=== PATIENT | female | born 1970 | race Caucasian/White ===

== ENCOUNTER 2020-11-09 13:05 | Outpatient (REF) | payer OTHER, SELFPAY | END 2020-11-09 13:06 | disposition home or self-care (01) | LOC: HO.LAB 13:05 | PROVIDERS: Visit Provider Nurse Practitioner Family | DX: R50.9 Fever, unspecified (principal); Z20.822 Contact with and (suspected) exposure to COVID-19 | CPT/HCPCS: 36415; U0003; U0005 ==

== ENCOUNTER 2020-11-21 14:00 | Outpatient (REF) | payer OTHER, SELFPAY | END 2020-11-21 14:01 | disposition home or self-care (01) | LOC: HO.LNP 14:00 | PROVIDERS: Visit Provider Hospitalist | DX: Z20.822 Contact with and (suspected) exposure to COVID-19 (principal); B34.9 Viral infection, unspecified | CPT/HCPCS: U0003; U0005 ==

== ENCOUNTER 2021-01-10 12:05 | Outpatient (REF) | payer OTHER, SELFPAY ==
[2021-01-10 14:18] LABS: MANUAL DIFF FLAG NO
[2021-01-10 14:29] LABS: Basophils Percent Auto 0.5 % (0-2); Eosinophils Absolute Auto 0.1 X10*3/uL (0.0-0.4); Eosinophils Percent Auto 1.4 % (0-4); Hematocrit 32.7 % (37-47); Hemoglobin 9.2 g/dl (12.0-16.0); Imm Gran Abs Auto 0.02 X10*3/uL (0.00-0.03); Imm Gran Pct Auto 0.3 % (0.0-0.4); Lymphocytes Absolute Auto 2.1 X10*3/uL (1.2-4.9); Lymphocytes Percent Auto 31.7 % (20-40); Mean Corpuscular HGB Conc 28.1 g/dl (31.0-35.0); Mean Corpuscular Hemoglobin 19.4 pg (27.0-33.0); Mean Platelet Volume 9.5 fL (9.4-12.3); Monocytes Absolute Auto 0.5 X10*3/uL (0.1-1.2); Monocytes Percent Auto 7.7 % (2-11); Neutrophils Absolute Auto 3.8 X10*3/uL (2.0-8.3); Neutrophils Percent Auto 58.4 % (45-73); Platelet Count 368 X10*3/uL (160-400); Red Blood Count 4.74 X10*6/uL (4.20-5.50); Red Cell Distribution Width 17.7 % (11.0-16.0); White Blood Count 6.5 X10*3/uL (4.8-10.8)
[2021-01-10 15:01] LABS: TSH reflex Free T4 1.88 uIU/mL (0.32-4.0)
[2021-01-10 15:03] LABS: Alanine Aminotransferase 11 U/L (0-31); Albumin Level 4.2 g/dL (3.5-5.0); Alkaline Phosphatase 71 U/L (39-117); Anion Gap 12 (12-20); Aspartate Amino Transferase 14 U/L (5-31); Bilirubin Direct 0.2 mg/dL (0.0-0.5); Bilirubin Total 0.3 mg/dL (0.0-1.0); Blood Urea Nitrogen 17 mg/dL (9-16); Calcium 8.8 mg/dL (8.4-10.2); Carbon Dioxide 22 mmol/L (22-29); Chloride 112 mmol/L (96-108); Cholesterol 129 mg/dL; Estimated Glomerular Filt Rate > 60; Glucose Fasting 87 mg/dL (60-99); HDL Cholesterol 57 mg/dL; LDL Cholesterol Calculated 57 mg/dl; Potassium 4.7 mmol/L (3.3-5.1); Sodium 141 mmol/L (135-145); Total Protein 7.3 g/dL (6.5-8.0); Triglycerides 79 mg/dL
== END 2021-01-10 12:06 | disposition home or self-care (01) ==
LOC: HO.HMGCLDS 12:05
PROVIDERS: PCP Internal Medicine; Visit Provider Internal Medicine
DX: Z00.01 Encounter for general adult medical examination with abnormal findings (principal); F11.20 Opioid dependence, uncomplicated; F33.2 Major depressive disorder, recurrent severe without psychotic features; F41.1 Generalized anxiety disorder; G44.89 Other headache syndrome; G47.9 Sleep disorder, unspecified; M62.838 Other muscle spasm; K21.9 Gastro-esophageal reflux disease without esophagitis; R20.2 Paresthesia of skin; I25.2 Old myocardial infarction; I25.10 Atherosclerotic heart disease of native coronary artery without angina pectoris; Z86.73 Personal history of transient ischemic attack (TIA), and cerebral infarction without residual deficits
CPT/HCPCS: 36415; 80048; 80061; 80076; 84443; 85025

== ENCOUNTER → 2021-02-09 11:46 | Outpatient (BNVA) | payer OTHER, SELFPAY | PROVIDERS: PCP Internal Medicine; Visit Provider Nurse Practitioner | DX: Z12.11 Encounter for screening for malignant neoplasm of colon (principal); D50.9 Iron deficiency anemia, unspecified; R20.2 Paresthesia of skin | CPT/HCPCS: 99202 ==

== ENCOUNTER 2021-02-13 16:45 | Outpatient (REF) | payer OTHER, SELFPAY | END 2021-02-13 16:46 | disposition home or self-care (01) | LOC: HO.LNP 16:45 | PROVIDERS: Visit Provider Hospitalist | DX: Z20.822 Contact with and (suspected) exposure to COVID-19 (principal); B34.9 Viral infection, unspecified | CPT/HCPCS: U0003; U0005 ==

== ENCOUNTER 2021-02-17 | Outpatient (REF) | payer OTHER, SELFPAY ==
[2021-02-24 11:38] LABS: FIT Int Ctl YES; FIT1 NEGATIVE (NEGATIVE); FIT2 NEGATIVE (NEGATIVE)
== END 2021-02-17 00:01 | disposition home or self-care (01) ==
LOC: HO.LNP
PROVIDERS: Visit Provider Nurse Practitioner
DX: Z12.11 Encounter for screening for malignant neoplasm of colon (principal); D50.9 Iron deficiency anemia, unspecified
CPT/HCPCS: 82274

== ENCOUNTER 2021-03-16 07:25 | Day surgery (SDC) | payer OTHER, SELFPAY ==
[2021-03-10 15:17] VITALS: BMI 37.8
--- NOTE | 2021-03-13 12:10 | P.CONAN_ITS ---
Documented by User: Zabrina Juan 03/14/21 15:44 HPI - Anesthesia Eval Consult details Narrative: 51yo F for Colonoscopy PMFSH Active Problems Active Problems: All Active Problems (Updated 03/10/21 @ 15:24 by Lara Love) Fever (Acute) Viral syndrome (Acute) Encounter for general adult medical examination with abnormal findings (Acute) Coronary artery disease (Acute) History of myocardial infarction (Acute) History of stroke (Acute) Paresthesia of arm (Acute) Paresthesia of right leg (Acute) Chronic GERD (Acute) Narcotic dependence (Acute) Depression, major, severe recurrence (Acute) Anxiety, generalized (Acute) Difficulty sleeping (Acute) Muscle spasm (Acute) Headache syndrome (Acute) Iron deficiency anemia (Acute) Microcytic hypochromic anemia (Acute) Colon cancer screening (Acute) Past Medical History Medical History (Updated 03/14/21 @ 15:43 by Zabrina Juan) Anemia Anxiety, generalized Asthma CAD (coronary artery disease) Chronic GERD CVA (cerebral vascular accident) Depression History of anxiety Myocardial infarction Narcotic dependence Paresthesia of arm Paresthesia of right leg Patulous eustachian tube, right ear Sleep apnea Family History Family History Father Lung cancer Surgical History Surgical History H/O bilateral breast reduction surgery Hx of colonoscopy Social History Social History Household Members: Children Alcohol intake: current Alcohol intake frequency: holidays/special occasions only Patient Tobacco Use Status: Former Tobacco user Substance Use Type Other:: narcotic dependence Are you DNR?: No Advance Directives: No Advance Directives Information Provided: Yes Recently lost weight without trying: No Nutrition Risks: No Nutritional Risk Current occupational status: disabled Meds Allergies Allergy/AdvReac Type Severity Reaction Status Date / Time latex Allergy Unknown unknown Verified 02/13/21 14:09 levofloxacin [From Levaquin] Allergy Unknown Unknown Verified 02/13/21 14:09 Sulfa (Sulfonamide Allergy Unknown Unknown Verified 02/13/21 14:09 Antibiotics) Home Medications Medication Instructions Recorded Confirmed Last Taken Type aspirin 81 mg tablet,delayed 81 mg PO DAILY 11/09/20 03/10/21 Unknown History release atorvastatin 80 mg tablet 80 mg PO DAILY 11/09/20 03/10/21 Unknown History buprenorphine HCl 750 mcg buccal 750 mcg BUCCAL Q12H 11/09/20 03/10/21 Unknown History film clonazepam 1 mg tablet 1 mg PO DAILY 11/09/20 03/10/21 Unknown History duloxetine 30 mg capsule,delayed 30 mg PO DAILY 11/09/20 03/10/21 Unknown History release duloxetine 60 mg capsule,delayed 60 mg PO DAILY 11/09/20 03/10/21 Unknown History release hydroxyzine HCl 10 mg tablet 10 mg PO BEDTIME 11/09/20 03/10/21 Unknown History loratadine 10 mg tablet 10 mg PO DAILY 11/09/20 03/10/21 Unknown History metoprolol succinate 25 mg 25 mg PO DAILY 11/09/20 03/10/21 Unknown History tablet,extended release 24 hr omeprazole 40 mg capsule,delayed 40 mg PO DAILY 11/09/20 03/10/21 Unknown History release tizanidine 4 mg capsule 4 mg PO BEDTIME 11/09/20 03/10/21 Unknown History topiramate 200 mg tablet 200 mg PO BEDTIME 11/09/20 03/10/21 Unknown History Exam Exam Date and Time: March 13, 2021 1210 Height,Weight and Vital Signs: Height 5 ft Weight 87.8 kg Pertinent Lab Results Pertinent Lab Results: Laboratory Tests 01/10/21 01/10/21 12:24 12:24 WBC 6.5 Hgb 9.2 L Hct 32.7 L Plt Count 368 Sodium 141 Potassium 4.7 Chloride 112 H Carbon Dioxide 22 BUN 17 H Creatinine 0.84 Narrative Narrative: Stress Echo 11/2019 No evidence of ishcemia by ECG or Echo. Normal stress echo at 95% of the MPHR. Assessment and Plan Assessment Anesthesia Assessment: Chart Reviewed Documented by User: Adin Sweet MD 03/16/21 08:28 COUNT INCLUDES THE [facility] Past Medical History Medical History (Updated 03/14/21 @ 15:43 by Zabrina Juan) Anemia Anxiety, generalized Asthma CAD (coronary artery disease) Chronic GERD CVA (cerebral vascular accident) Depression History of anxiety Myocardial infarction Narcotic dependence Paresthesia of arm Paresthesia of right leg Patulous eustachian tube, right ear Sleep apnea Family History Family History Father Lung cancer Surgical History Surgical History H/O bilateral breast reduction surgery Hx of colonoscopy Social History Social History Household Members: Children Alcohol intake: current Alcohol intake frequency: holidays/special occasions only Patient Tobacco Use Status: Former Tobacco user Substance Use Type Other:: narcotic dependence Are you DNR?: No Advance Directives: No Advance Directives Information Provided: Yes Recently lost weight without trying: No Nutrition Risks: No Nutritional Risk Current occupational status: disabled Meds Allergies Allergy/AdvReac Type Severity Reaction Status Date / Time latex Allergy Unknown unknown Verified 02/13/21 14:09 levofloxacin [From Levaquin] Allergy Unknown Unknown Verified 02/13/21 14:09 Sulfa (Sulfonamide Allergy Unknown Unknown Verified 02/13/21 14:09 Antibiotics) Home Medications Medication Instructions Recorded Confirmed Last Taken Type aspirin 81 mg tablet,delayed 81 mg PO DAILY 11/09/20 03/10/21 Unknown History release atorvastatin 80 mg tablet 80 mg PO DAILY 11/09/20 03/10/21 Unknown History buprenorphine HCl 750 mcg buccal 750 mcg BUCCAL Q12H 11/09/20 03/10/21 Unknown History film clonazepam 1 mg tablet 1 mg PO DAILY 11/09/20 03/10/21 Unknown History duloxetine 30 mg capsule,delayed 30 mg PO DAILY 11/09/20 03/10/21 Unknown History release duloxetine 60 mg capsule,delayed 60 mg PO DAILY 11/09/20 03/10/21 Unknown History release hydroxyzine HCl 10 mg tablet 10 mg PO BEDTIME 11/09/20 03/10/21 Unknown History loratadine 10 mg tablet 10 mg PO DAILY 11/09/20 03/10/21 Unknown History metoprolol succinate 25 mg 25 mg PO DAILY 11/09/20 03/10/21 Unknown History tablet,extended release 24 hr omeprazole 40 mg capsule,delayed 40 mg PO DAILY 11/09/20 03/10/21 Unknown History release tizanidine 4 mg capsule 4 mg PO BEDTIME 11/09/20 03/10/21 Unknown History topiramate 200 mg tablet 200 mg PO BEDTIME 11/09/20 03/10/21 Unknown History Exam Airway Mallampati Class: I TM Dist: >3cm Neck ROM: Full Loose/Missing/Broken Teeth: No Heart: aRRR Lungs: NL Assessment and Plan Assessment Anesthesia Assessment: Anesthesia Plan Discussed and Chart Reviewed Final Anesthetic Review NPO: Yes ASA Class: III Final Preanesthetic Review: No Changes in Pt Med Stat, Meds/Allgs Chart Reviewed, Consent Obtained/Reviewed and Anes Risks/Benef Reviewed Patient Risk: Intermediate Procedure Risk: Low Anesthetic Plan Anesthetic Plan: MAC: Disposition: Standard PACU
[2021-03-16 07:39] VITALS: BMI 36.7
[2021-03-16 07:49] VITALS: BP 143/99; PULSE 90; RESP 18; TEMP 36.9; O2SAT 96
[2021-03-16] MEDS: Lactated Ringers 1,000 ML 100 ML IVCONT (07:56)
--- NOTE | 2021-03-16 08:29 | P.HPSUR_ITS ---
Pre-Procedural Eval Section B Chief Complaint: Screening Details of Present Illness: anemia, possible melena as well, Fh of polyps Relevant Family History (Specify if Yes): Yes Relevant Social History: None Present Medications: see Short Stay Collaborative assessment Medical History: Significant History (Anemia Anxiety, generalized Asthma CAD (coronary artery disease) Chronic GERD CVA (cerebral vascular accident) Depression History of anxiety Myocardial infarction Narcotic dependence Paresthesia of arm Paresthesia of right leg Patulous eustachian tube, right ear Sleep apnea) History of Previous Operations: Relevant previous surgery/procedure and date(s) (H/O bilateral breast reduction surgery Hx of colonoscopy) Allergies: Allergies Allergy/AdvReac Type Severity Reaction Status Date / Time latex Allergy Unknown unknown Verified 02/13/21 14:09 levofloxacin [From Levaquin] Allergy Unknown Unknown Verified 02/13/21 14:09 Sulfa (Sulfonamide Allergy Unknown Unknown Verified 02/13/21 14:09 Antibiotics) Review of Systems Sugical H&P ROS: Negative: Constitution, Cardiovascular, Respiratory, Neurological, Psychiatric, Hem-Onc, Allergic/Immunologic, Gastrointestinal, Genitourinary, Musculoskeletal, Integumentary, Endocrine and Eyes/Ears/Nose/ Throat Exam Surgical H&P Exam: Normal: HEENT, Normal: Heart, Normal: Lungs, Normal: Extremities, Normal: Abdomen, Normal: Skin and Normal: Neurological Plan Diagnosis/Plan: Unchanged I have reviewed the history and physical and performed a pertinent physical examination on my patient. No changes have occurred unless specified. EGD added to colonoscopy for anemia work up.
--- NOTE | 2021-03-16 08:31 | P.BOP_ITS ---
Brief Operative Note Date of Service: 03/16/21 Pre-op diagnosis: anemia Post-op diagnosis: same Procedure: see op note Surgeon: Booker Pierre MD Anesthesia: MAC Was an Networking Technology Instructor used for this Procedure?: No Estimated blood loss (mL): 0 Condition: stable Disposition: PACU
--- NOTE | 2021-03-16 08:43 | W.PM.OPN ---
Operative Note Operative Note Date of Service: 03/16/21 Narrative: Operative Information Procedure Description: EGD, Colonoscopy FLEXIBLE TRANSORAL UPPER GASTROINTESTINAL ENDOSCOPY AND COLONOSCOPY PROCEDURE NOTE UPPER ENDOSCOPY Consent: Indications for the procedure and potential complications of bleeding, perforation, reaction to medications and missed diagnosis were discussed with the patient and informed consent was obtained. Instrument: Olympus GIF H 190 J mid size upper endoscope Monitoring: Vital signs and clinical assessment, continuous EKG monitoring, Pulse oximetry, Carbon Dioxide monitoring and blood pressure monitoring were done throughout the procedure. Procedure: The patient was placed in the left lateral decubitis position and pre-procedure medications were administered and a bite block was placed. The endoscope was inserted into the mouth and advanced under direct vision to the third part of duodenum. A careful inspection was made as the upper endoscope was withdrawn including a retroflexed examination of the proximal stomach; Findings and interventions are described below. Findings: Larynx:normal Esophagus: GE junction at 35 cm, diaphragm hiatus at 33 cm, 2 cm sliding hiatal hernia noted with non obstructive schatzki ring Stomach: Mild gastritis with single erosion noted at pylorus. Biopsies were obtained. Grade 2 flap valve on retroflexed examination of the cardia. Duodenum: Normal bulb and descending duodenum, bx taken Intervention: Biopsies as noted above COLONOSCOPY Instrument: Olympus variable stiffness pediatric scope 190L Colonoscopy Monitoring: Vital signs and clinical assessment, continuous EKG monitoring, Pulse oximetry, Carbon Dioxide monitoring and blood pressure monitoring were done throughout the procedure. Colon withdrawal time was 8 minutes. Procedure: The patient was placed in the left lateral decubitis position and pre-procedure medications were administered. After a digital rectal examination of the ano-rectum, the video colonoscope was inserted into the rectum and advanced through the colon to the cecum/TI. The colonoscope was slowly withdrawn in a retrograde panoramic fashion and the colon mucosa was carefully examined including a retroflexed view of the rectum. Findings and interventions are described below. Procedure Difficulty:easy Findings: Terminal Ileum-normal Cecum:normal Ascending Colon: normal Transverse Colon -normal Descending Colon:normal Sigmoid Colon: normal Rectum: Retroflexion with moderate sized internal hemorrhoids, grade I Anorectum - normal Colon preparation: [facility] Bowel Preparation Scale Right colon; 2 Transverse colon: 2 Left colon; 2 (0 = Unprepared colon segment with mucosa not seen due to solid stool that cannot be cleared. 1 = Portion of mucosa of the colon segment seen, but other areas of the colon segment not well seen due to staining, residual stool and/or opaque liquid. 2 = Minor amount of residual staining, small fragments of stool and/or opaque liquid, but mucosa of colon segment seen well. 3 = Entire mucosa of colon segment seen well with no residual staining, small fragments of stool or opaque liquid) Impression and Post Procedure Diagnosis: Endoscopy Findings: erosive gastritis schatzki ring hiatal hernia Colonoscopy Findings: internal hemorrhoids Plan: Await Pathology results Repeat Colonoscopy in 5 years due to Fh of polyps or earlier if clinically indicated High fiber diet leaflet avoid straining at stool, epsom salts and sitz bath, anusol supps or cream as needed if bx neg then capsule endoscopy to complete anemia work uop Above findings were reviewed with the patient and relevant handouts were provided if indicated.
[2021-03-16 09:01] VITALS: BP 142/87; PULSE 67; RESP 16; TEMP 36.3; O2SAT 100
[2021-03-16 09:06] VITALS: BP 137/88; PULSE 68; RESP 16; O2SAT 100
[2021-03-16 09:11] VITALS: BP 154/89; PULSE 65; RESP 16; TEMP 36.4; O2SAT 100
== END 2021-03-16 09:56 | disposition home or self-care (01) ==
PROVIDERS: PCP Internal Medicine; Visit Provider Internal Medicine Gastroenterology
PROC: 0DJD8ZZ Inspection of Lower Intestinal Tract, Via Natural or Artificial Opening Endoscopic (ICD-10-PCS; CPT 45378; principal; 2021-03-16 08:30)
DX: Z12.11 Encounter for screening for malignant neoplasm of colon (principal); Z83.71 Family history of colonic polyps; K64.0 First degree hemorrhoids; D64.9 Anemia, unspecified; K21.9 Gastro-esophageal reflux disease without esophagitis; K29.60 Other gastritis without bleeding; K22.2 Esophageal obstruction; K44.9 Diaphragmatic hernia without obstruction or gangrene; I69.351 Hemiplegia and hemiparesis following cerebral infarction affecting right dominant side; I69.323 Fluency disorder following cerebral infarction; J45.909 Unspecified asthma, uncomplicated; I25.10 Atherosclerotic heart disease of native coronary artery without angina pectoris; I25.2 Old myocardial infarction; F32.9 Major depressive disorder, single episode, unspecified; G47.00 Insomnia, unspecified; F11.20 Opioid dependence, uncomplicated; Z87.891 Personal history of nicotine dependence; Z91.040 Latex allergy status; Z88.1 Allergy status to other antibiotic agents; Z88.2 Allergy status to sulfonamides; Z79.82 Long term (current) use of aspirin; Z79.899 Other long term (current) drug therapy
CPT/HCPCS: 43239; G0105; 88305; 88342

== ENCOUNTER → 2021-03-30 08:26 | Outpatient (BNVA) | payer OTHER, SELFPAY | PROVIDERS: PCP Internal Medicine; Visit Provider Nurse Practitioner | DX: Z12.11 Encounter for screening for malignant neoplasm of colon (principal); K21.9 Gastro-esophageal reflux disease without esophagitis; Z83.71 Family history of colonic polyps | CPT/HCPCS: Q3014 ==

== ENCOUNTER 2021-06-01 10:50 | Outpatient (REF) | payer OTHER, SELFPAY | END 2021-06-01 10:51 | disposition home or self-care (01) | LOC: HO.LAB 10:50 | PROVIDERS: PCP Internal Medicine; Visit Provider Family Medicine Adult Medicine | DX: G89.4 Chronic pain syndrome (principal); M54.17 Radiculopathy, lumbosacral region; Z79.899 Other long term (current) drug therapy | CPT/HCPCS: Q3014 ==

== ENCOUNTER 2021-12-09 11:07 | Outpatient (REF) | payer OTHER, SELFPAY ==
[2021-12-09 13:34] LABS: MANUAL DIFF FLAG NO
[2021-12-09 13:39] LABS: Basophils Percent Auto 0.7 % (0-2); Eosinophils Absolute Auto 0.1 X10*3/uL (0.0-0.4); Eosinophils Percent Auto 2.3 % (0-4); Hematocrit 41.4 % (37.0-47.0); Hemoglobin 13.5 g/dl (12.0-16.0); Imm Gran Abs Auto 0.02 X10*3/uL (0.00-0.03); Imm Gran Pct Auto 0.3 % (0.0-0.4); Lymphocytes Percent Auto 33.4 % (20-40); Mean Corpuscular HGB Conc 32.6 g/dl (31.0-35.0); Mean Corpuscular Hemoglobin 27.8 pg (27.0-33.0); Mean Corpuscular Volume 85.2 fL (80.0-98.0); Mean Platelet Volume 9.7 fL (9.4-12.3); Monocytes Absolute Auto 0.5 X10*3/uL (0.1-1.2); Monocytes Percent Auto 8.2 % (2-11); Neutrophils Absolute Auto 3.3 x10*3/uL (2.0-8.3); Neutrophils Percent Auto 55.1 % (45-73); Platelet Count 296 X10*3/uL (160-400); Red Blood Count 4.86 X10*6/uL (4.20-5.50); Red Cell Distribution Width 13.4 % (11.0-16.0)
[2021-12-09 13:48] LABS: Estimated Average Glucose 100 mg/dL; Hemoglobin A1c % 5.1 %
[2021-12-09 13:54] LABS: Alanine Aminotransferase 14 U/L (0-31); Albumin Level 3.8 g/dL (3.5-5.0); Alkaline Phosphatase 98 U/L (39-117); Anion Gap 12 (12-20); Aspartate Amino Transferase 18 U/L (5-31); Bilirubin Total 0.4 mg/dL (0.0-1.0); Blood Urea Nitrogen 12 mg/dL (9-16); Calcium 9.1 mg/dL (8.4-10.2); Carbon Dioxide 23 mmol/L (22-29); Chloride 111 mmol/L (96-108); Estimated Glomerular Filt Rate > 60; Glucose Random 90 mg/dL (60-115); Potassium 4.5 mmol/L (3.3-5.1); Sodium 141 mmol/L (135-145)
[2021-12-09 14:14] LABS: Ferritin 23 ng/mL (10-250); TSH reflex Free T4 2.77 uIU/mL (0.32-4.0)
[2021-12-10 09:17] LABS: LDL Cholesterol Direct 45 mg/dL (<100)
== END 2021-12-09 11:08 | disposition home or self-care (01) ==
LOC: HO.HMGCLDS 11:07
PROVIDERS: Absent Provider Internal Medicine Medical Oncology; PCP Internal Medicine; Visit Provider Internal Medicine
DX: Z00.01 Encounter for general adult medical examination with abnormal findings (principal); I10 Essential (primary) hypertension; E66.09 Other obesity due to excess calories
CPT/HCPCS: 36415; 80053; 82728; 83036; 83721; 84443; 85025

== ENCOUNTER → 2022-05-17 10:07 | Outpatient (BNVA) | payer OTHER, SELFPAY | PROVIDERS: PCP Internal Medicine; Visit Provider Nurse Practitioner | DX: K59.04 Chronic idiopathic constipation (principal); K21.9 Gastro-esophageal reflux disease without esophagitis; Z83.71 Family history of colonic polyps | CPT/HCPCS: 99212 ==

== ENCOUNTER 2022-06-08 14:20 | Outpatient (REF) | payer OTHER, SELFPAY ==
--- NOTE | ~2022-06-08 | XR_ITS ---
EXAMINATION: XR FOOT, RIGHT CLINICAL INFORMATION: Pain in the right foot. COMPARISON: None TECHNIQUE: AP, lateral, and oblique views of the right foot. FINDINGS: There is a hallux valgus deformity of the great toe. Joint spaces are maintained. No acute fracture. Small corticated osseous density at the tip of medial malleolus is chronic. This small bone density has corticated margins. No dislocation. Small plantar calcaneal spur. No soft tissue abnormality. XR/XR foot RT min 3V IMPRESSION: Hallux valgus deformity of the great toe. Small plantar calcaneal spur. No acute abnormality.
== END 2022-06-08 14:21 | disposition home or self-care (01) ==
LOC: HO.HMGCX 14:20
PROVIDERS: PCP Internal Medicine
DX: M79.672 Pain in left foot (principal)
CPT/HCPCS: 73630

== ENCOUNTER → 2022-06-14 11:31 | Outpatient (BNVA) | payer OTHER, SELFPAY | PROVIDERS: PCP Internal Medicine; Visit Provider Nurse Practitioner | DX: K21.9 Gastro-esophageal reflux disease without esophagitis (principal); K59.04 Chronic idiopathic constipation | CPT/HCPCS: 99212 ==

== ENCOUNTER → 2022-07-06 08:24 | Outpatient (BNVA) | payer OTHER, SELFPAY | PROVIDERS: PCP Internal Medicine; Referring Provider Internal Medicine; Visit Provider Nurse Practitioner | DX: K21.9 Gastro-esophageal reflux disease without esophagitis (principal); R68.81 Early satiety; R11.0 Nausea; K59.04 Chronic idiopathic constipation | CPT/HCPCS: 99212 ==

== ENCOUNTER → 2022-11-13 08:06 | Outpatient (REF) | payer OTHER, SELFPAY ==
--- NOTE | ~2022-11-13 | NM_ITS ---
EXAMINATION: RADIONUCLIDE SOLID FOOD GASTRIC EMPTYING 4-HOUR STUDY CLINICAL INFORMATION: Early satiety. COMPARISON: No previous gastric emptying study is available for comparison. TECHNIQUE: A standard meal consisting of 4 oz of Egg Beaters brand equivalent tagged with 860 microcuries Tc-99m Sulfur Colloid, 8 oz water and 2 slices of toast with jelly was administered orally to the patient. Images were obtained using a dual head gamma camera in the anterior and posterior projections over of the stomach immediately post ingestion and at hourly intervals up to 4 hours post ingestion. The anterior and posterior counts at each time interval were averaged using the geometric mean and expressed as percentage of the immediate post ingestion counts. FINDINGS: There is good visualization of activity in the stomach immediately post ingestion. As the study progresses, there progressively increasing visualization of small bowel activity. However, at the end of the study there is mild abnormal retention of activity in the stomach at 4 hours. Retention in the stomach at each time interval was: 1 hour 58% (normal 37%-90%) 2 hours 43% (normal 30%-60%) 3 hours 26% 4 hours 20% (normal 0%-10%) NM/NM gastric emptying study IMPRESSION: Abnormal study. There is mild retention of solid food in the stomach at 4 hours.
== END ==
LOC: HO.NUCMED 08:06
PROVIDERS: PCP Internal Medicine; Visit Provider Nurse Practitioner
DX: R68.81 Early satiety (principal); R11.0 Nausea
CPT/HCPCS: 78264; A9541

== ENCOUNTER → 2022-12-10 09:28 | Outpatient (BNVA) | payer OTHER, SELFPAY | PROVIDERS: PCP Internal Medicine; Visit Provider Internal Medicine | DX: M54.16 Radiculopathy, lumbar region (principal); M48.062 Spinal stenosis, lumbar region with neurogenic claudication; Z79.899 Other long term (current) drug therapy | CPT/HCPCS: 99212 ==

== ENCOUNTER 2022-12-24 10:59 | Outpatient (REF) | payer OTHER, SELFPAY ==
--- NOTE | ~2022-12-24 | MM_ITS ---
EXAMINATION: MM SCREENING DIGITAL BREAST TOMOSYNTHESIS, BILATERAL CLINICAL INFORMATION: Screening. Asymptomatic. The lifetime risk of breast cancer based on the Tyrer-Cuzick Model is 9%. COMPARISON: Outside mammography 08/08/2021, 02/11/2020, 08/07/2018 ([facility] TECHNIQUE: Digital breast tomosynthesis is performed in both the craniocaudal and mediolateral oblique views along with computer-aided detection (CAD). Synthesized 2D images are generated from the tomosynthesis. FINDINGS: The breasts are heterogeneously dense, which may obscure small masses (ACR BI-RADS breast composition Category c). Parenchymal pattern is similar to prior outside exams. There are scattered stable bilateral nodular parenchymal asymmetries and probable fibrocystic changes. No developing density or architectural abnormality or significant mass. No abnormal calcifications. The axilla and skin contours are unremarkable. No significant changes. MM/MM tomosynthesis screening BI IMPRESSION: No mammographic evidence of malignancy. ASSESSMENT: BI-RADS 2: Benign RECOMMENDATION: Routine annual mammography screening. This patient's information was entered into a reminder system with a target due date for their next mammogram.
== END 2022-12-24 11:00 | disposition home or self-care (01) ==
LOC: HO.MAMMO 10:59
PROVIDERS: PCP Internal Medicine; Visit Provider Internal Medicine
DX: Z12.31 Encounter for screening mammogram for malignant neoplasm of breast (principal)
CPT/HCPCS: 77063; 77067

== ENCOUNTER → 2023-01-02 09:44 | Outpatient (BNVA) | payer OTHER, SELFPAY | PROVIDERS: PCP Internal Medicine; Visit Provider Nurse Practitioner | DX: K30 Functional dyspepsia (principal); K59.04 Chronic idiopathic constipation; K21.9 Gastro-esophageal reflux disease without esophagitis | CPT/HCPCS: 99212 ==

== ENCOUNTER 2023-04-29 09:51 | Outpatient (AMB) | payer OTHER, SELFPAY ==
--- NOTE | 2023-04-29 09:54 | MHC.OFFVIS ---
Intake Vital Signs 04/29/23 09:55 Height 4 ft 9 in Weight 218 lb BMI 47.2 BP 160/94 H Blood Pressure Location Lt radial Position Sitting Respiration 14 Pulse 70 Pulse Source Pulse Oximeter Pulse Oximetry (%) 99 Oxygen Delivery Method Room Air Intake Visit Reasons: CHRONIC PAIN Allergies latex Allergy (Unknown, Verified 04/29/23 10:00) unknown levofloxacin [From Levaquin] Allergy (Unknown, Verified 04/29/23 10:00) Unknown Sulfa (Sulfonamide Antibiotics) Allergy (Unknown, Verified 04/29/23 10:00) Unknown Medication List - Last Reconciled 04/29/23 by Annmarie Escobar LPN aspirin (Adult Aspirin Regimen) 81 mg PO DAILY atorvastatin 80 mg PO DAILY buprenorphine HCl (Belbuca) 750 mcg buccal Q12H buspirone 30 mg PO TID clonazepam 1 mg PO DAILY duloxetine 60 mg PO DAILY duloxetine 20 mg PO DAILY famotidine (Pepcid) 40 mg PO BEDTIME ferrous sulfate (FeroSul) 325 mg PO BID ketoconazole 2% topical melatonin 5 mg PO BEDTIME metoclopramide HCl (Reglan) 5 mg PO .tidac metoprolol succinate ER 25 mg PO DAILY mometasone 0.1% mL topical naproxen sodium 275 mg PO BID PRN pantoprazole (Protonix) 40 mg PO DAILY 30 days plecanatide (Trulance) 3 mg PO DAILY prazosin 2 mg PO BEDTIME prazosin 1 mg PO BEDTIME tizanidine 4 mg PO BEDTIME topiramate 200 mg PO BID HPI CHRONIC PAIN HPI Details 53-year-old female presenting today for a follow-up of chronic back and leg pain. Her current primary care physician is Dr. Mendes. She is currently on Belbuca 750 mg B.I.D. She is following up with her provider in [place], [place], for her prescription. She has to drive every month to [place] for her prescriptions. She has a fear of needles and is hesitant to undergo injections. She is interested in finding a primary care physician in the vicinity who can provide the Belbuca prescription for her. The patient reports back pain after walking about a block. [facility] Medical History (Updated 04/29/23 @ 10:46 by Adin Sweet MD) Anemia Anxiety, generalized Asthma CAD (coronary artery disease) Chronic GERD CVA (cerebral vascular accident) Depression Encounter for general adult medical examination with abnormal findings History of anxiety Myocardial infarction Narcotic dependence Paresthesia of arm Paresthesia of right leg Patulous eustachian tube, right ear Right lumbosacral radiculopathy Sleep apnea Surgical History H/O bilateral breast reduction surgery H/O esophagogastroduodenoscopy Hx of colonoscopy Family History Father Lung cancer Social History Household Members: Children Housing: House Alcohol intake: current Alcohol intake frequency: holidays/special occasions only Patient Tobacco Use Status: Former Tobacco user e-Cigarette/Vaping Use: Never Used Current occupational status: disabled Cognitive needs: No Hearing needs: No Vision needs: No Review of Systems Const All systems reviewed & are unremarkable except as noted in HPI and below Physical Exam Vital Signs: Last Vital Signs Pulse 70 04/29/23 09:55 Resp 14 04/29/23 09:55 BP 160/94 H 04/29/23 09:55 Pulse Ox 99 04/29/23 09:55 Oxygen Delivery Method Room Air 04/29/23 09:55 BMI result Body Mass Index 47.2 General: Appears afebrile. Alert and oriented. Mood and affect appropriate. Follows and participates in conversation appropriately. Respiratory effort is unlabored. Able to transition from sit to stand unassisted. Ambulates with bilaterally normal heel strike and toe off. Spine Facet loading is positive on both sides. Results Reviewed Results Reviewed: Reviewed MRI of the lumbar spine done in 2021. Mild thoracolumbar scoliosis. Multilevel lower lumbar facet arthritis with significant arthropathy and hypertrophy. Significant multifidus atrophy. Moderate ligamentum flavum hypertrophy. No significant central or foraminal stenosis. Assessment & Plan Assessment & Plan (1) Degenerative joint disease of low back: Code(s): M47.9 - Spondylosis, unspecified Plan 1. Discussed diagnostic facet joint interventions as potential treatment option to help relieve some of her lumbar spondylosis related symptoms. While she has some symptoms that appear to be neurogenic claudication, her imaging is quite reassuring from a spinal stenosis standpoint. The patient will let us know whenever she wants to proceed with either of the treatment options in the future. 2. As discussed on the last visit, I again informed her that we're no longer accepting patients into our narcotics program. However, I feel that it would be appropriate for her to continue her Belbuca 750 mcg b.i.d. regimen under the care of a primary care provider. She has been stable on this medication without any side effects or issues with compliance. She states that she is happy to provide records from her current prescriber showing her compliance and lack of adverse effects, but I do not have these for review today. I informed her that her primary care provider may require to review those records prior to taking over the prescription. Patient expressed understanding. Scribed for Dr. Sweet by Justino Bashir, clinical laboratory medical director, on 04/29/2023. I, Dr. Sweet, have personally reviewed and agree with the information entered by the scribe. Coding Level of Care Code Est Pt Level 4 (45827) Diagnoses Degenerative joint disease of low back M47.9
[2023-04-29 09:55] VITALS: BP 160/94; PULSE 70; RESP 14; O2SAT 99; BMI 47.2
== END 2023-04-29 10:22 | disposition home or self-care (01) ==
PROVIDERS: PCP Internal Medicine; Visit Provider Internal Medicine
DX: M47.9 Spondylosis, unspecified (principal)
CPT/HCPCS: 99214

== ENCOUNTER → 2023-04-29 09:51 | Outpatient (BNVA) | payer OTHER, SELFPAY | PROVIDERS: PCP Internal Medicine; Visit Provider Internal Medicine | DX: M47.9 Spondylosis, unspecified (principal) | CPT/HCPCS: 99212 ==

== ENCOUNTER 2023-07-04 08:17 | Outpatient (AMB) | payer OTHER, SELFPAY ==
--- NOTE | 2023-07-04 08:20 | MHC.OFFVIS ---
Intake Vital Signs 07/04/23 08:38 Height 4 ft 9 in Weight 219 lb 2.232 oz BMI 47.4 BP 184/93 H Blood Pressure Location Lt brachial Position Sitting Pulse 53 Intake Visit Reasons: 6 mnth f/u paresis, GERD, CIC Intake Note: Patient presents to in office visit today in 6 months follow up paresis, GERD. CC: Patient reports she is doing well and denies having any new GI issues today. Accompanied by: Self / Same As Patient Allergies latex Allergy (Unknown, Verified 07/04/23 08:42) unknown levofloxacin [From Levaquin] Allergy (Unknown, Verified 07/04/23 08:42) Unknown Sulfa (Sulfonamide Antibiotics) Allergy (Unknown, Verified 07/04/23 08:42) Unknown HPI 6 mnth f/u paresis, GERD, CIC HPI Details Assessment & Plan (1) Delayed gastric emptying: Comment: 2022 GES delay Code(s): K30 - Functional dyspepsia Plan: REGLAN 5 MG 3 TIMES A DAY WITH SENT 11/26 She is doing well with the reglan w/o any s/e. This has resolved her N/V and her severe GERD. She continues on the famotidine qhs and pantoprazole qam. She also continues on evelin Trulance with good CIC control. She is requesting referral to wt [facility]. but this does not need a referral. She is dieting to lost wt and her clothes are looser, so she question the accuracy of our scale. ROV 6 mos. (2) Chronic idiopathic constipation: Code(s): K59.04 - Chronic idiopathic constipation (3) Chronic GERD: Code(s): K21.9 - Gastro-esophageal reflux disease without esophagitis Medications: New famotidine (Pepcid ) 40 mg PO BEDTIME 30 tabs 6RF Refilled metoclopramide HCl (Reglan) 5 mg PO .tidac 90 tabs 6RF K31.84 - Gastropar esis pantoprazole (Prot wilson) 40 mg PO DAILY 30 days 30 tabs 6RF K21.9 - Gastro-eso phageal reflux dis ease without esoph agitis plecanatide (Trula nce) 3 mg PO DAILY 30 tabs 6RF K59.04 - Chronic i diopathic constipa tion TODAY'S VISIT She continues to do well on her medications. She is doing well with the reglan w/o any s/e. This has resolved her N/V and her severe GERD. She continues on the famotidine qhs and pantoprazole qam. She also continues on the Trulance with good CIC control. She is working at the [employer] and is very tired! 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 ROV 6 mos. [facility] Medical History Right lumbosacral radiculopathy Sleep apnea Asthma History of anxiety Anemia Depression CVA (cerebral vascular accident) Myocardial infarction CAD (coronary artery disease) Patulous eustachian tube, right ear Anxiety, generalized Narcotic dependence Chronic GERD Paresthesia of right leg Paresthesia of arm Encounter for general adult medical examination with abnormal findings Surgical History H/O esophagogastroduodenoscopy Hx of colonoscopy H/O bilateral breast reduction surgery Family History Father Lung cancer Social History Household Members: Children Housing: House Alcohol intake: current Alcohol intake frequency: holidays/special occasions only Patient Tobacco Use Status: Former Tobacco user e-Cigarette/Vaping Use: Never Used Current occupational status: disabled Cognitive needs: No Hearing needs: No Vision needs: No Review of Systems Const Reports fatigue, Denies fever(s), Denies night sweats, Denies poor appetite and Denies weight loss ENT Reports Normal hearing present, Denies dental pain, Denies dysphagia, Denies hearing loss, Denies mouth pain, Denies odynophagia, Denies throat swelling, Denies tongue swelling and Reports other (Dentition adequate) Card Reports no additional complaints Resp Reports no additional complaints GI Denies abdominal pain, Denies melena, Denies bloating, Denies hematochezia, Reports constipation, Denies GI cramping, Denies dysphagia, Denies excessive flatus, Denies early satiety, Reports heartburn, Denies diarrhea, Denies nausea, Denies odynophagia, Denies vomiting and Denies hematemesis Skin/Breast Denies pruritus, Denies lesions, Denies rash and Denies jaundice Neuro Reports Normal hearing present and Denies Abnormal speech present Endo Reports fatigue Aller/Immun Denies throat swelling and Denies tongue swelling Physical Exam Vital Signs: Last Vital Signs Pulse 53 07/04/23 08:38 BP 184/93 H 07/04/23 08:38 BMI result Body Mass Index 47.4 Const General: cooperative, no acute distress, well developed and well groomed Nutritional Appearance: well nourished and obese morbidly obese Orientation/consciousness: oriented to person, oriented to place and oriented to time Limitations: No language barrier HEENT Head: Yes normocephalic and Yes atraumatic Eyes General: appearance normal, both eyes and all related structures Pupils: Equal, round and reactive pupils present Neck Neck: Yes normal visual inspection and Yes no lymphadenopathy Thyroid: Thyroid normal Resp Effort & Inspection: normal respiratory effort and able to speak in complete sentences Auscultation: clear to auscultation bilaterally Cardio Rate: regular rate Rhythm: regular rhythm Heart sounds: Normal, physiologic split S2 sound present Peripheral pulses: radial pulses present and posterior tibial pulses present GI Inspection: No distended, Yes Abdominal panniculus present and Yes obesity Palpation (GI): Soft to palpation, nontender, no guarding, not rigid and No hepatosplenomegaly present Percussion: Yes normal to percussion Auscultation: normal bowel sounds Rectal Exam - Female: deferred Skin General skin exam: no rashes or lesions noted, turgor normal, skin not dry, no jaundice, No spider nevi and no striae Rashes: no rashes Nails: normal Neuro General: oriented to person, oriented to place and oriented to time Cranial nerves: Yes Equal, round and reactive pupils present and Yes Normal hearing present Speech: No Abnormal speech present Extrem General: Yes normal to inspection, No clubbing, No cyanosis and No edema Psych Appearance: grossly normal and well kempt Mental Status: mental status grossly normal Speech and movement: Normal speech and movement present Affect: normal affect Attitude: cooperative Thought process: Normal thought process present and not confabulating Thought content: Normal thought content present Insight: Fair insight present (Psych) Judgement: Fair judgement present (Psych) Assessment & Plan Assessment & Plan (1) Delayed gastric emptying: Comment: 2022 GES delay Code(s): K30 - Functional dyspepsia Plan: She continues to do well on her medications. She is doing well with the reglan w/o any s/e. This has resolved her N/V and her severe GERD. She continues on the famotidine qhs and pantoprazole qam. She also continues on the Trulance with good CIC control. She is working at the [employer] and is very tired! 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 ROV 6 mos. (2) Chronic idiopathic constipation: Code(s): K59.04 - Chronic idiopathic constipation (3) Chronic GERD: Code(s): K21.9 - Gastro-esophageal reflux disease without esophagitis Medications: Refilled famotidine (Pepcid) 40 mg PO BEDTIME 30 tabs 6RF metoclopramide HCl (Reglan) 5 mg PO .tidac 90 tabs 6RF K31.84 - Gastroparesis plecanatide (Trulance) 3 mg PO DAILY 30 tabs 6RF K59.04 - Chronic idiopathic constipation pantoprazole 40 mg PO DAILY 90 tabs 2RF K21.9 - Gastro-esophageal reflux disease without esophagitis Coding Level of Care Code Est Pt Level 3 (67434) Diagnoses Delayed gastric emptying K30 Chronic idiopathic constipation K59.04 Chronic GERD K21.9
[2023-07-04 08:38] VITALS: BP 184/93; PULSE 53; BMI 47.4
== END 2023-07-04 08:57 | disposition home or self-care (01) ==
PROVIDERS: Visit Provider Nurse Practitioner
DX: K30 Functional dyspepsia (principal); K59.04 Chronic idiopathic constipation; K21.9 Gastro-esophageal reflux disease without esophagitis
CPT/HCPCS: 99213

== ENCOUNTER → 2023-07-04 08:17 | Outpatient (BNVA) | payer OTHER, SELFPAY | PROVIDERS: Visit Provider Nurse Practitioner | DX: K30 Functional dyspepsia (principal); K59.04 Chronic idiopathic constipation; K21.9 Gastro-esophageal reflux disease without esophagitis; Z79.899 Other long term (current) drug therapy | CPT/HCPCS: 99212 ==

== ENCOUNTER 2024-01-02 07:49 | Outpatient (AMB) | payer OTHER, SELFPAY ==
--- NOTE | 2024-01-02 07:58 | MHC.OFFVIS ---
Intake Vital Signs 01/02/24 08:02 Height 4 ft 11 in Weight 213 lb BMI 43.0 BP 137/71 Blood Pressure Location Lt brachial Position Sitting Pulse 63 Intake Visit Reasons: 6 month follow up Intake Note: Patient follow up for Chronic GERD. Patient denies any GI issues.. Medical Legal Investigator Required: No Accompanied by: Self / Same As Patient Allergies latex Allergy (Unknown, Verified 01/02/24 07:57) unknown levofloxacin [From Levaquin] Allergy (Unknown, Verified 01/02/24 07:57) Unknown Sulfa (Sulfonamide Antibiotics) Allergy (Unknown, Verified 01/02/24 07:57) Unknown HPI 6 month follow up HPI Details Assessment & Plan (1) Delayed gastric emptying: Comment: 2022 GES delay Code(s): K30 - Functional dyspepsia Plan: She continues to do well on her medications. She is doing well with the reglan w/o any s/e. This has resolved her N/V and her severe GERD. She continues on the famotidine qhs and pantoprazole qam. She also continues on the Trulance with good CIC control. She is working at the [employer] and is very tired! 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 ROV 6 mos. (2) Chronic idiopathic constipation: Code(s): K59.04 - Chronic idiopathic constipation (3) Chronic GERD: Code(s): K21.9 - Gastro-esophageal reflux disease without esophagitis Medications: Refilled famotidine (Pepcid ) 40 mg PO BEDTIME 30 tabs 6RF metoclopramide HCl (Reglan) 5 mg PO .tidac 90 tabs 6RF K31.84 - Gastropar esis plecanatide (Trula nce) 3 mg PO DAILY 30 tabs 6RF K59.04 - Chronic i diopathic constipa tion pantoprazole 40 mg PO DAILY 90 tabs 2RF K21.9 - Gastro-eso phageal reflux dis ease without esoph agitis CORRESPONDENCE On 11/21/22 @ 16:40 Fara Gaviria Wrote To Tono,January I rescheduled this patient and she states that she just has been waiting for her results - she is having severe GERD and she states that she had an allergic reaction..she said Sulfur but I am not sure if she meant Sulfa which is listed in her chart. She said she had a bad two days after the GES? TODAY'S VISIT REGLAN 5 MG 3 TIMES A DAY WITH SENT 11/26 The reglan is working well! She has had absolutely no side effects, and this has resolved her sulfa burping and her nausea. This is allowing her to eat better as well. She is very satisfied now with her GI regimen and the control of her heartburn. She also continues on her Trulance with good control of her constipation along with her pantoprazole and famotidine. She is taking 5 mg of Reglan 3 times a day and only had 1 incident of overnight acid brash what she thinks this because she ate too late. We discussed a possible for this depending on how she progresses especially with other medications. She had another stroke with facial droop and slurred speech in September but did not go tot [facility]. She tells me that her doctor will be putting her on Wegovy soon and I did let her know that this could slow down her GI system even more and we may need to readjust the medications. Return office visit in 3 months [facility] Medical History (Updated 01/02/24 @ 08:09 by CHUCKIE Mosley) Nausea Early satiety Skin tag Encounter for general adult medical examination with abnormal findings Screening mammogram for breast cancer Family history of polyps in the colon Colon cancer screening Muscle spasm Viral syndrome Fever Right lumbosacral radiculopathy Sleep apnea Asthma History of anxiety Anemia Depression CVA (cerebral vascular accident) Myocardial infarction CAD (coronary artery disease) Patulous eustachian tube, right ear Anxiety, generalized Narcotic dependence Chronic GERD Paresthesia of right leg Paresthesia of arm Encounter for general adult medical examination with abnormal findings Surgical History (Updated 01/02/24 @ 08:09 by CHUCKIE Mosley) History of bilateral breast reduction surgery H/O esophagogastroduodenoscopy Hx of colonoscopy H/O bilateral breast reduction surgery Family History Father Lung cancer Social History Household Members: Children Housing: House Alcohol intake: current Alcohol intake frequency: holidays/special occasions only Patient Tobacco Use Status: Former Tobacco user e-Cigarette/Vaping Use: Never Used Current occupational status: disabled Cognitive needs: No Hearing needs: No Vision needs: No Review of Systems Const Denies fatigue, Denies fever(s), Denies night sweats, Denies poor appetite and Denies weight loss ENT Reports Normal hearing present, Denies dental pain, Denies dysphagia, Denies hearing loss, Denies mouth pain, Denies odynophagia, Denies throat swelling, Denies tongue swelling and Reports other (Dentition adequate) Card Reports no additional complaints Resp Reports no additional complaints GI Details: Denies abdominal pain, Denies melena, Denies bloating, Denies hematochezia, Reports constipation, Denies GI cramping, Denies dysphagia, Denies excessive flatus, Reports early satiety, Reports heartburn, Denies diarrhea, Reports nausea, Denies odynophagia, Denies vomiting and Denies hematemesis Skin/Breast Denies pruritus, Denies lesions, Denies rash and Denies jaundice Neuro Reports Normal hearing present, Denies Abnormal speech present and Reports focal weakness Endo Denies fatigue Aller/Immun Denies throat swelling and Denies tongue swelling Physical Exam Vital Signs: Last Vital Signs Pulse 63 01/02/24 08:02 BP 137/71 01/02/24 08:02 BMI result Body Mass Index 43.0 Const General: cooperative, no acute distress, well developed and well groomed Nutritional Appearance: well nourished and obese morbidly obese Orientation/consciousness: oriented to person, oriented to place and oriented to time Limitations: No language barrier HEENT Head: Yes normocephalic and Yes atraumatic Eyes General: appearance normal, both eyes and all related structures Pupils: Equal, round and reactive pupils present Neck Neck: Yes normal visual inspection and Yes no lymphadenopathy Thyroid: Thyroid normal Resp Effort & Inspection: normal respiratory effort and able to speak in complete sentences Auscultation: clear to auscultation bilaterally Cardio Rate: regular rate Rhythm: regular rhythm Heart sounds: Normal, physiologic split S2 sound present Peripheral pulses: radial pulses present and posterior tibial pulses present GI Inspection: No distended, Yes Abdominal panniculus present and Yes obesity Palpation (GI): Soft to palpation, nontender, no guarding, not rigid and No hepatosplenomegaly present Percussion: Yes normal to percussion Auscultation: normal bowel sounds Rectal Exam - Female: deferred Skin General skin exam: no rashes or lesions noted, turgor normal, skin not dry, no jaundice, No spider nevi and no striae Rashes: no rashes Nails: normal Neuro General: oriented to person, oriented to place and oriented to time Cranial nerves: Yes Equal, round and reactive pupils present and Yes Normal hearing present Speech: No Abnormal speech present Extrem General: Yes normal to inspection, No clubbing, No cyanosis and No edema Psych Appearance: grossly normal and well kempt Mental Status: mental status grossly normal Speech and movement: Normal speech and movement present Affect: normal affect Attitude: cooperative Thought process: Normal thought process present and not confabulating Thought content: Normal thought content present Insight: Fair insight present (Psych) Judgement: Fair judgement present (Psych) Results Reviewed Results Reviewed: FINDINGS: There is good visualization of activity in the stomach immediately post ingestion. As the study progresses, there progressively increasing visualization of small bowel activity. However, at the end of the study there is mild abnormal retention of activity in the stomach at 4 hours. Retention in the stomach at each time interval was: 1 hour 58% (normal 37%-90%) 2 hours 43% (normal 30%-60%) 3 hours 26% 4 hours 20% (normal 0%-10%) NM/NM gastric emptying study IMPRESSION: Abnormal study. There is mild retention of solid food in the stomach at 4 hours. Dictated By: Hal Navarro MD Signed By: <Electronically signed by Hal Navarro MD in [place]> 11/14/22 Assessment & Plan Assessment & Plan (1) Delayed gastric emptying: Comment: 2022 GES delay Code(s): K30 - Functional dyspepsia (2) Chronic idiopathic constipation: Code(s): K59.04 - Chronic idiopathic constipation (3) Chronic GERD: Code(s): K21.9 - Gastro-esophageal reflux disease without esophagitis Plan REGLAN 5 MG 3 TIMES A DAY WITH SENT 11/26 The reglan is working well! She has had absolutely no side effects, and this has resolved her sulfa burping and her nausea. This is allowing her to eat better as well. She is very satisfied now with her GI regimen and the control of her heartburn. She also continues on her Trulance with good control of her constipation along with her pantoprazole and famotidine. She is taking 5 mg of Reglan 3 times a day and only had 1 incident of overnight acid brash what she thinks this because she ate too late. We discussed a possible for this depending on how she progresses especially with other medications. She had another stroke with facial droop and slurred speech in September but did not go tot [facility]. She tells me that her doctor will be putting her on Wegovy soon and I did let her know that this could slow down her GI system even more and we may need to readjust the medications. Return office visit in 3 months Coding Level of Care Code Est Pt Level 3 (42605) Diagnoses Delayed gastric emptying K30 Chronic idiopathic constipation K59.04 Chronic GERD K21.9
[2024-01-02 08:02] VITALS: BP 137/71; PULSE 63; BMI 43.0
== END 2024-01-02 08:25 | disposition home or self-care (01) ==
PROVIDERS: PCP Internal Medicine; Visit Provider Nurse Practitioner
DX: K30 Functional dyspepsia (principal); K59.04 Chronic idiopathic constipation; K21.9 Gastro-esophageal reflux disease without esophagitis
CPT/HCPCS: 99213

== ENCOUNTER → 2024-01-02 07:49 | Outpatient (BNVA) | payer OTHER, SELFPAY | PROVIDERS: PCP Internal Medicine; Visit Provider Nurse Practitioner | DX: K30 Functional dyspepsia (principal); K59.04 Chronic idiopathic constipation; K21.9 Gastro-esophageal reflux disease without esophagitis | CPT/HCPCS: 99212 ==

== ENCOUNTER → 2024-06-04 13:23 | Outpatient (RCR) | payer OTHER, SELFPAY ==
[2021-01-19 13:49] VITALS: BP 157/85; PULSE 78; RESP 12; TEMP 36.8; O2SAT 100; BMI 36.6
--- NOTE | 2021-01-19 15:00 | MHC.HEMONCMA ---
Pt present for consult on anemia. History reviewed and referral for GI has been placed and pt will be notified with date. Aslo, injectofen will be scheduled as well.
--- NOTE | 2021-01-19 15:30 | PM.HEMONCCN ---
Subjective - Subjective Chief complaint: Consult for: Microcytic hypochromic Anemia. Patient: new to practice Consult date: 01/19/21 Requesting Physician: марина Primary Care Provider: Ronel Mendes MD Medical Summary: DIAGNOSIS: MICROCYTIC HYPOCHROMIC ANEMIA. HPI - Consult Narrative Reason for consult: Consult for: Anemia. Narrative: Aline Coley is a pleasant year old lady, who tells me that she has been, tired all her life. Her mom tells her that she was anemic even as a baby. She was started on oral iron ferrous sulfate 325 mg. However she passes out when she tries to take it. She has not ever taken IV iron. Her CBC: Hemoglobin 9.2. ROS: She is very tired lately. Denies fever nor chills. She has lost weight intentionally. Up to 67 lb over the past year or so. She does get headaches and dizziness. No chest pain but she gets short of breath on exertion especially walking up stairs. Denies abdominal pain nausea vomiting heartburn indigestion. Bowels are working without any gross blood in it. She denies having had a colonoscopy. She does get her periods but they are occasional. She had a miscarriage back in May. She had a D&C and ablation. Her hand joints hurt. Denies any focal deficits. She does feel rather anxious and depressed. Family history: Dad of lung cancer. 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 She is . Has 2 children. She used to smoke but quit years ago. She drinks socially. Review of Systems - Constitutional Reports system reviewed and no additional complaints, except as documented, Reports fatigue, Reports lack of energy, Reports malaise, Reports weakness - Eyes Reports system reviewed and no additional complaints, except as documented - ENT Reports system reviewed and no additional complaints, except as documented - Cardiovascular Reports system reviewed and no additional complaints, except as documented - Respiratory Reports no additional respiratory complaints - Gastrointestinal Reports system reviewed and no additional complaints, except as documented - Genitourinary Reports no additional female genitourinary complaints - Musculoskeletal Reports system reviewed and no additional complaints, except as documented - Integumentary/Breasts Skin/Breast: Reports no additional skin complaints - Neurologic Reports system reviewed and no additional complaints, except as documented - Psychiatric Reports system reviewed and no additional complaints, except as documented - Endocrine Reports no additional endocrine complaints - Hematologic/Lymphatic Reports system reviewed and no additional complaints, except as documented - Allergic/Immunologic Reports system reviewed and no additional complaints, except as documented Oncology Screenings - ECOG Performance Status ECOG Performance Status: 0 [facility] Medical History: Medical History (Last Updated 01/19/21 @ 13:56 by Kendal Murphy) Patulous eustachian tube, right ear Functional capacity: independent ambulation Patient : No Family History: Family History (Last Updated 01/19/21 @ 13:56 by Kendal Murphy) Father Lung cancer Surgical History: Surgical History (Last Updated 01/19/21 @ 13:56 by Kendal Murphy) H/O bilateral breast reduction surgery Social History: Social History (Last Updated 01/19/21 @ 13:53 by Kendal Murphy) Alcohol History: Alcohol intake: current Alcohol History Details: Alcohol intake frequency: holiday/special occasion Smoking status: Former smoker Home Medications and Allergies Home Medications Medication Instructions Recorded Confirmed Type aspirin 81 mg tablet,delayed 81 mg PO DAILY 11/09/20 01/19/21 History release atorvastatin 80 mg tablet 80 mg PO DAILY 11/09/20 01/19/21 History buprenorphine HCl 750 mcg buccal 750 mcg BUCCAL Q12H 11/09/20 01/19/21 History film clonazepam 1 mg tablet 1 mg PO DAILY 11/09/20 01/19/21 History duloxetine 30 mg capsule,delayed 30 mg PO DAILY 11/09/20 01/19/21 History release duloxetine 60 mg capsule,delayed 60 mg PO DAILY 11/09/20 01/19/21 History release hydroxyzine HCl 10 mg tablet 10 mg PO BEDTIME 11/09/20 01/19/21 History loratadine 10 mg tablet 10 mg PO DAILY 11/09/20 01/19/21 History metoprolol succinate 25 mg 25 mg PO DAILY 11/09/20 01/19/21 History tablet,extended release 24 hr omeprazole 40 mg capsule,delayed 40 mg PO DAILY 11/09/20 01/19/21 History release tizanidine 4 mg capsule 4 mg PO BEDTIME 11/09/20 01/19/21 History topiramate 200 mg tablet 200 mg PO BEDTIME 11/09/20 01/19/21 History Allergies Allergy/AdvReac Type Severity Reaction Status Date / Time latex Allergy Unknown unknown Verified 12/07/20 09:21 levofloxacin [From Levaquin] Allergy Unknown Unknown Verified 12/07/20 09:22 Sulfa (Sulfonamide Allergy Unknown Unknown Verified 12/07/20 09:21 Antibiotics) Physical Exam Vital signs: Vital Signs Temp 98.2 F 01/19/21 13:49 Pulse 78 01/19/21 13:49 Resp 12 01/19/21 13:49 BP 157/85 H 01/19/21 13:49 Pulse Ox 100 01/19/21 13:49 Intake & Output 01/18/21 01/19/21 01/19/21 18:59 06:59 18:59 Other: Weight 85 kg Jackson Weight in Grams [id number] Weight 85 kg - Constitutional Present: mild distress - Routine HEENT Exam Head: Present: normal inspection ENT: Present: mucous membranes moist - Routine Neck Exam Present: supple - Routine Respiratory Exam Present: CTAB - Routine Cardiovascular Exam Cardiovascular: Present: RRR, S1, S2 - Routine Extremities Exam Present: nontender - Routine Skin Exam Present: intact - Routine Neurological Exam Present: alert, oriented X3 - Detailed Neurological Exam: Coma Scale Eye Opening: Spontaneous (4) Verbal Response: Oriented (5) Motor Response: Obeys commands (6) Della Coma Scale Total: 15 - Routine Psychiatric Exam Present: anxious. Absent: normal affect Assessment and Plan (1) Microcytic hypochromic anemia Status: Acute DATABASE: 01/10: CBC: WBC 6.5, HGB 9.2, HCT 32.7, RBC: 4.74, MCV 69, PLT 368. CMP: LYTES WNL, GLUE 87, BUN 17, BRIM IRONER HAND 0.84. BESSIE 8.8. ALB 4.2. LFTS: 0.3/71/14/11. This is a pleasant 51-year-old lady with a history of microcytic hypochromic anemia, dating back to, all her life. She had a CBC recently by her primary. It revealed a hemoglobin of 9.2. MCV 69. Differential diagnosis: 1. IRON DEFICIENCY ANEMIA: She still gets intermittent periods. She can also have GI bleeding. Alternatively she can have iron malabsorption. 2. THALASSEMIA: 3. ACD: Patient is very anxious. She is scared of needles. PLAN: To proceed with further evaluation. She is not willing to have labs drawn today. She will return for that next week. Will arrange for IV iron. Injectofer: 750 mg x 2 1 week apart. Can draw the labs at the same time. She will return in 3 months for follow-up visit. Thank you, CC: Dr. Mendes.
--- NOTE | 2021-01-20 13:52 | MHC.HEMONCMA ---
Spoke with pt about GI referral and how she will need a insurance referral from her pcp as well as her last notes faxed to GI department. Appointment has been scheduled for 02/09/21 @ 11:30am. All information was given to pt.
--- NOTE | 2021-01-25 10:51 | MHC.HEMONC ---
PT CALLED - IS UNABLE MAKE THE IRON INFUSION APPT. REQUESTED TO SPEAK W/DR MATTHEWS. RICKI IS NOTIFIED
== END | disposition home or self-care (01) ==
LOC: HO.ONC 01-19 13:43
PROVIDERS: PCP Internal Medicine; Referring Provider Internal Medicine; Visit Provider Internal Medicine Medical Oncology
DX: D50.9 Iron deficiency anemia, unspecified (principal); F41.9 Anxiety disorder, unspecified
CPT/HCPCS: 99204

== ENCOUNTER 2025-01-15 15:13 | Outpatient (AMB) | payer OTHER, SELFPAY ==
--- OUTSIDE RECORDS SUMMARY | 2025-01-15 15:15 | XMS_ITS | Continuity of Care Document ---
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 Name Role Phone Anjel Castillo MD Primary Care Physician Encounter [facility] Date(s): 12/11/24 - 01/10/25 [facility] [address] [place], [place] [address] Encounter Diagnosis Iron deficiency(Discharge Diagnosis) - 12/12/24 Encounter Type: Triage Allergies, Adverse Reactions, Alerts Substance Criticality Severity Reaction Reaction Severity Status sulfa drugs rash Active Levaquin unsure of reaction A ctive Zithromax Z-Agustin red rash Acti ve Latex rash Active Decongestant throat closed u p - unsure of specific decongestant Active Lyrica rage Active Immunizations Given and Recorded Vaccine Date Status Refusal Reason SARS-CoV-2 (COVID-19) mRNA BNT-162b2 vac 03/11/21 Recorded SARS-CoV-2 (COVID-19) mRNA BNT-162b2 vac 02/18/21 Recorded Medications aspirin 81 mg oral tablet 1 tablet = 81 mg, By Mouth, Daily, 0 Refills, Maintenance, 10/15/17 3:23:17 PM EST Start Date: 10/15/17 Status: Ordered Repeat number: 1 atorvastatin 80 mg oral tablet 1 tablet = 80 mg, By Mouth, Daily, # 90 tablet, 0 Refills, Maintenance, 10/28/23 4:17:00 PM EST, Tablet, Partial fill upon patient request if the prescription is for a schedule II opioid drug. Start Date: 10/28/23 Status: Ordered Quantity: 90.0 Unit: tablet Repeat number: 1 Belbuca 750 mcg buccal film 1 each = 750 mcg, By Mouth, Every 12 hours, 0 Refills, Maintenance, 08/18/20 11:21:00 AM EST, Partial fill upon patient request Start Date: 08/18/20 Status: Ordered Repeat number: 1 busPIRone 30 mg oral tablet 0 Refills, Maintenance, 05/14/24 8:35:00 PM EDT, Partial fill upon patient request if the prescription is for a schedule II opioid drug. Start Date: 05/14/24 Status: Ordered Repeat number: 1 Claritin 10 mg oral tablet 10 mg, 1, tablet, By Mouth, Daily, PRN, # 30 tablet, Refills 0, Maintenance, Congestion, 08/18/20 11:23:00 AM EST, Partial fill upon patient request Start Date: 08/18/20 Status: Ordered Quantity: 30.0 Unit: tablet Repeat number: 1 clonazepam 1 mg oral tablet 1 tablet = 1 mg, By Mouth, 2 times a day, PRN Anxiety, 0 Refills, Maintenance, 12/24/14 11:55:47 AM EDT Start Date: 12/24/14 Status: Ordered Repeat number: 1 duloxetine 20 mg oral enteric coated capsule 1 capsule = 20 mg, By Mouth, Daily, 0 Refills, Maintenance, 12/30/23 11:03:00 AM EDT, Partial fill upon patient request if the prescription is for a schedule II opioid drug. Start Date: 12/30/23 Status: Ordered Repeat number: 1 famotidine 40 mg oral tablet 1 tablet = 40 mg, By Mouth, Daily at bedtime, # 30 tablet, 0 Refills, Maintenance, 04/01/23 11:13:00AM EDT, Tablet, Partial fill upon patient request if the prescription is for a schedule II opioid drug. Start Date: 04/01/23 Status: Ordered Quantity: 30.0 Unit: tablet Repeat number: 1 ferrous sulfate 325 mg oral enteric coated tablet 325 mg, 1, tablet, By Mouth, 2 times a day, # 180 tablet, Refills 0, Tot. Refills 0, Maintenance, 12/12/24 12:33:00 PM EST, Route to Pharmacy Electronically, [facility]/pharmacy #[id number], Partial fill upon patient request if the prescription is for a schedule II opioid drug., 152.4, cm, 11/02/24 11:57:00 EST, Height, 73.4, kg, 11/02/24 11:38:00 EST, Dry Weight Start Date: 12/12/24 Status: Ordered Quantity: 180.0 Unit: tablet Repeat number: 1 Indication: Iron deficiency ferrous sulfate 325 mg oral enteric coated tablet 325 mg, 1, tablet, By Mouth, Daily, Refills 0, Maintenance, 04/01/23 11:16:00 AM EDT, Partial fill upon patient request if the prescription is for a schedule II opioid drug. Start Date: 04/01/23 Status: Ordered Repeat number: 1 Fluticasone Nasal Daily, PRN Congestion, 0 Refills, Maintenance, 06/18/17 10:22:02 AM EDT Start Date: 06/18/17 Status: Ordered Repeat number: 1 hydrOXYzine hydrochloride 10 mg oral tablet 1 tablet = 10 mg, By Mouth, 4 times a day, PRN for itching, # 80 tablet, 0 Refills, Maintenance, 08/18/20 11:24:00 AM EST, Tablet, Partial fill upon patient request Start Date: 08/18/20 Status: Ordered Quantity: 80.0 Unit: tablet Repeat number: 1 Medrol Dosepak 4 mg oral tablet See Instructions, Day 1: 6 tabs. Day 2: 5 tabs. Day 3: 4 tabs. Day 4: 3 tabs. Day 5: 2 tabs. Day 6:1 tab, # 21 tablet, 0 Refills, Maintenance, 08/05/24 1:50:00 PM EDT, [facility]/pharmacy #[id number], Partial fill upon patient request if the prescription is for a schedule II opioid drug., 152.4, cm, 05/04/24 12:06:00 EDT, Height, 82, kg, 05/04/24 11:46:00 EDT, Dry Weight Start Date: 08/05/24 Status: Ordered Quantity: 21.0 Unit: tablet Repeat number: 1 Melatonin 5 mg oral tablet 1 tablet = 5 mg, By Mouth, Daily at bedtime, PRN for insomnia, # 60 tablet, 0 Refills, Maintenance,10/18/16 2:03:37 PM EST, Tablet Start Date: 10/18/16 Status: Ordered Quantity: 60.0 Unit: tablet Repeat number: 1 metoclopramide 5 mg oral tablet 1 tablet = 5 mg, By Mouth, 3 times a day before meals and bedtime, 0 Refills, Maintenance, 04/01/23 11:14:00 AM EDT, Partial fill upon patient request if the prescription is for a schedule II opioid drug. Start Date: 04/01/23 Status: Ordered Repeat number: 1 Metoprolol Succinate ER 50 mg oral tablet, extended release 1 tablet, By Mouth, Daily, # 90 tablet, 1 Refills, Maintenance, 10/05/23 9:57:00 AM EST, [id number], 152.4, cm, 07/31/23 9:36:00 EDT, Height Start Date: 10/05/23 Status: Ordered Quantity: 90.0 Unit: tablet Repeat number: 1 pantoprazole 40 mg oral delayed release tablet TAKE 1 TABLET BY MOUTH EVERY DAY Start Date: 04/01/23 Status: Ordered Repeat number: 1 prazosin 1 mg oral capsule TAKE 1 CAPSULE BY MOUTH AT BEDTIME WITH 2 MG CAP FOR A TOTAL OF 3 MG FOR NIGHTMARES Start Date: 04/01/23 Status: Ordered Repeat number: 1 prazosin 2 mg oral capsule TAKE 1 CAPSULE BY MOUTH EVERY NIGHT AT BEDTIME FOR NIGHTMARES Start Date: 05/14/24 Status: Ordered Repeat number: 1 ProAir HFA 90 mcg/inh inhalation aerosol with adapter 2 puffs, Inhalation, 4 times a day, PRN Wheezing/Shortness of Breath, 0 Refills, Maintenance, 12/24/14 11:57:43 AM EDT Start Date: 12/24/14 Status: Ordered Repeat number: 1 Splint See Instructions, # 2 each, Refills 0, Tot. Refills 0, Maintenance, Apply neutral wrist splints to both wrists for diagnosis of bilateral carpal tunnel syndrome., 11/23/21 3:19:00 PM EST, Supply, 152.4, cm, 02/14/21 8:09:00 EDT, Height, 86.3, kg, 08/23/20 9:13:00 EST, Dry Weight Start Date: 11/23/21 Status: Ordered Quantity: 2.0 Unit: each Repeat number: 1 tizanidine 4 mg oral tablet 1 tablet = 4 mg, By Mouth, 3 times a day, 0 Refills, Maintenance, 12/24/14 11:56:40 AM EDT Start Date: 12/24/14 Status: Ordered Repeat number: 1 topiramate 200 mg oral tablet 1 tablet, By Mouth, 2 times a day, # 180 tablet, 3 Refills, Maintenance, 07/12/24 11:37:00 AM EDT, [id number], 152.4, cm, 05/04/24 12:06:00 EDT, Height, 82, kg, 05/04/24 11:46:00 EDT, Dry Weight Start Date: 07/12/24 Status: Ordered Quantity: 180.0 Unit: tablet Repeat number: 1 Trulance 3 mg oral tablet TAKE 1 TABLET BY MOUTH EVERY DAY Start Date: 04/01/23 Status: Ordered Repeat number: 1 Ubrelvy 50 mg oral tablet See Instructions, PRN as needed for migraine headache, one tab by mouth as needed for migraine. Mayrepeat dose once in 2 hours if needed. No more than 2 doses in 24 hours., # 16 tablet, 2 Refills, Soft Stop, 12/24/24 12:12:00 PM EDT, Tablet, [facility]/pharmacy #[id number], Partial fill upon patient request if the prescription is for a schedule II opioid drug., 152.4, cm, 12/24/24 11:28:00 EDT, Height, 73.4, kg, 11/02/24 11:38:00 EST, Dry Weight Start Date: 12/24/24 Status: Ordered Quantity: 16.0 Unit: tablet Repeat number: 3 valsartan 320 mg oral tablet 1 tablet = 320 mg, By Mouth, Daily, # 90 tablet, 1 Refills, Maintenance, 05/04/24 12:01:00 PM EDT, Tablet, [facility]/pharmacy #[id number], Partial fill upon patient request if the prescription is for a schedule II opioid drug., 152.4, cm, 05/04/24 11:46:00 EDT, Height, 82, kg, 05/04/24 11:46:00 EDT, Dry Weight Start Date: 05/04/24 Status: Ordered Quantity: 90.0 Unit: tablet Repeat number: 2 Zepbound Pen 15 mg/0.5 mL subcutaneous solution = 15 mg, Subcutaneous Injection, Every week, rotate injection sites, # 6 mL, 1 Refills, Maintenance, 12/24/24 2:48:00 PM EDT, Solution, [id number], Partial fill upon patient request if the prescription is for a schedule II opioid drug., 152.4, cm, 12/24/24 11:28:00 EDT, Height, 73.4, kg, 11/02/24 11:38:00 EST, Dry Weight Start Date: 12/24/24 Status: Ordered Quantity: 6.0 Unit: mL Repeat number: 2 Problem List Condition Confirmation Course Effective Dates Status H ealth Status Informant Asthma Confirmed Active Family history of colonic polyps; 5 yr colo recommended Confirmed Active Fibromyalgia Confirmed Active Generalized pain Confirmed Active History of AL; Dr Pearl Confirmed Active Hyperlipidemia Confirmed Active Hypertension Confirmed Active Iron deficiency Confirmed Active Major depressive disorder; psychiatry prescribing Confirmed Active Abnormal mammogram; q6mo f/u recommended Confirmed Active Migraine; [facility] Neurology Confirmed Active Obese class I Confirmed Active Uterine polyp Confirmed Active Sleep apnea Confirmed Active Diagnosis Diagnosis Type Effective Dates Health Status Cl inical Service Informant Iron deficiency Discharge Diagnosis 12/12/24 Social History Social History Type Response Smoking Status Former smoker; Tobac co user in household: Yes; Other: pt states she quit smoking over 20 years ago. lives with someone who smokes outside; entered on: 01/05/14 Sex Sex Representation Female (finding) Patient Care team information Care Team Personnel Name: Anjel Castillo MD Position: [facility] Physician - Primary Care Member Role: PCP Address: [address] [place] [address] Telecom: Care Team Related Persons Name: BRETT VALDEZ Name: KOKI JOSE Name: SURYA RODRIGUEZ Name: LISE RODRIGUEZ Name: RAVINDER QUINONSE Name: MARY ELLEN QUINONES Insurance Providers Guarantor name: DANAAbiel SHELLZI Health Plan Information #: 1 Payer: [facility] [employer] Member Number: NA Policy Number: NA Group Number: NA
--- OUTSIDE RECORDS SUMMARY | 2025-01-15 15:16 | XMS_ITS | Clinical Summary ---
Author Organization 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 Do not crush or chew. 90 each 2 11/04/2024 Active Medical History Medical History Date Comments Anxiety and depression DX:Anxiet y and depression Fibromyalgia DX:Fibromyalgia Migraine DX:Migraine CVA (cerebral vascular accid ent) (CMS/HCC V24, CMS/HCC V28) DX:CVA (cerebral vascular ac cident) ([facility]) MAYNOR on CPAP DX:MAYNOR on CPAP Chronic anemia DX:Chronic anemi a Family History Medical History Relation Name Comments Lung cancer Father Heart attack Mother Heart failure Mother Relation Name Status Comments Father Mother Social History Tobacco Use Types Packs/Day Years Used Date Smoking Tobacco: Former Smokeless Tobacco: Never Alcohol Use Standard Drinks/Week Comments Never 0 (1 standard drink = 0.6 oz pur e alcohol) Comments Unknown Sex and Gender Information Value Date Recorded Sex Assigned at Not on file Legal Sex Female 11:22 PM EST Gender Identity Not on file Sexual Orientation Not on file Obstetrics History Last Filed Vital Signs Vital Sign Reading Time Taken Comments Blood Pressure 120/74 07/06/2024 8:49 AM EDT Sit ting L Arm Pulse 54 07/06/2024 8:49 AM EDT Temperature - - Respiratory Rate - - Oxygen Saturation - - Inhaled Oxygen Concentration - - Weight 79.8 kg (176 lb) 07/06/2024 8:49 AM EDT Height 149.9 cm (4' 11 ) 07/06/2024 8:49 AM EDT Body Mass Index 35.55 07/06/2024 8:49 AM EDT Plan of Treatment Health Maintenance Due Date Last Done Comments DTaP,Tdap,and Td Vaccines (1 - Tdap) 1990 Hepatitis B Vaccines (1 of 3 - 19+ 3-dose series) 1990 Cervical Cancer Screening: P ap Smear 01/12/1992 Breast Cancer Screening 08/07/2020 08/07/2018 Pneumococcal Vaccine: 50+ Ye ars (1 of 1 - PCV) 2021 Zoster Vaccines (1 of 2) 2021 Cholesterol Screening (Lipid Panel) 09/15/2022 Colorectal Cancer Screening: Colonoscopy 09/15/2022 Depression Screening 09/15/2022 HIV Screening 09/15/2022 Hepatitis C Screening 09/15/2022 Social Influencers of Health Screening 09/15/2022 Hypertension/CHF/CAD Annual BMP Blood Test 09/20/2022 COVID-19 Vaccine ( - 2023-2 5 season) 2024 Influenza Vaccine (Season Ended) 2025 HIB Vaccines Aged Out No longer eligi ble based on patient's age to complete this topic HPV Vaccines Aged Out No longer eligi ble based on patient's age to complete this topic Hepatitis A Vaccines Aged Out No long er eligible based on patient's age to complete this topic IPV Vaccines Aged Out No longer eligi ble based on patient's age to complete this topic MMR Vaccines Aged Out No longer eligi ble based on patient's age to complete this topic Meningococcal ACWY Vaccine Aged Out N o longer eligible based on patient's age to complete this topic Meningococcal B Vaccine Aged Out No l onger eligible based on patient's age to complete this topic Pneumococcal Vaccine: Pediat rics (0 to 5 Years) and At-Risk Patients (6 to 64 Years) Aged Out No longer eligi ble based on patient's age to complete this topic RSV Immunization Patients Un jesica 20 months Aged Out No longer eligible b ased on patient's age to complete this topic Varicella Vaccines Aged Out No longer eligible based on patient's age to complete this topic Procedures Procedure Name Priority Date/Time Associated Diagnosis Comments [facility] SCREENING DIGITAL Routine 08/07/2018 1:47 PM EDT Encounter for screening mammogram for malignant neoplasm of breast from Last 3 Months or Most Recently Relevant to Health Maintenance Results * ANG[facility]O SCREENING DIGITAL (08/07/2018 1:47 PM EDT) Anatomical Region Laterality Modality Mammography 08/07/2018 10:0 8 AM EDT Narrative 08/07/2018 1:47 PM EDT [facility] Diagnostic Imaging Department [address] [place], [place] [address] Patient: ??ALINE QUINONES ?/Age/Sex: 1970 - 48 - F Unit#: ??[id number] ? Location/Status: ??SPDIMAM/REG CLI ? Mnemonic/Ordering Site: ??DIGSC/SPMAM Ordering Physician: ??BELA TAPIA MD [facility] Screening Digital - 08/07/18 - 1040 INDICATION: Screening. Reduction mammoplasty in 2008. COMPARISON: Prior mammograms dating back to 2014 TECHNIQUE: Routine views of both breasts were obtained using full-field direct digital mammography. Bilateral tomosynthesis was performed in MLO projection. Computer Aided Detection was utilized. BREAST PARENCHYMAL COMPOSITION: The breast parenchyma is heterogeneously dense which may obscure the detection of small masses. (Category C density) FINDINGS: ??There is no suspicious finding within either breast. Stable appearance of focal asymmetries in both breasts. IMPRESSION: 1. No mammographic evidence of malignancy. 2. Annual screening mammography is recommended . 3. If there is an elevated lifetime risk of breast cancer, given the breast density, screening with MRI may be considered. OVERALL FINAL ASSESSMENT: BI-RADS Assessment Category 2: Benign. PQRI CPT II 3342 F A negative mammogram in the presence of clinically suspicious palpable abnormality does not preclude the possibility of malignancy or alter the indications for biopsy. Note: Patient information entered into a reminder system with a target due date for the next mammogram: ??CPT II 7025F [id number] Dictating Physician: ??NELA SANCHEZ MD Electronically Signed by: ??NELA SANCHEZ MD Dic Date/Time: ??08/07/18 1344 Sign date/Time: ??08/07/18 1347 Procedure Note Nela Sanchez MD - 09/25/2022 [facility] Diagnostic Imaging Department [address] [place] [address] Patient: ALINE QUINONESO.B./Age/Sex: 1970 - 48 - F Unit#: [id number] Location/Status: [facility] CLI Mnemonic/Ordering Site: [facility] Ordering Physician: BELA TAPIA MD [facility] Screening Digital - 08/07/18 - 0 INDICATION: Screening. Reduction mammoplasty in 2008. COMPARISON: Prior mammograms dating back to 2014 TECHNIQUE: Routine views of both breasts were obtained using full-fielddirect digital mammography. Bilateral tomosynthesis was performed in MLOprojection. Computer Aided Detection was utilized. BREAST PARENCHYMAL COMPOSITION: The breast parenchyma is heterogeneouslydense which may obscure the detection of small masses. (Category C density) FINDINGS: There is no suspicious finding within either breast. Stable appearance of focal asymmetries in both breasts. IMPRESSION: 1. No mammographic evidence of malignancy. 2. Annual screening mammography is recommended . 3. If there is an elevated lifetime risk of breast cancer, given thebreast density, screening with MRI may be considered. OVERALL FINAL ASSESSMENT: BI-RADS Assessment Category 2: Benign. PQRI CPT II 3342 F A negative mammogram in the presence of clinically suspicious palpable abnormality does not preclude the possibility of malignancy or alter the indications for biopsy. 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
--- NOTE | 2025-01-15 15:17 | A.OFFVIS_ITS ---
Vital Signs 01/15/25 15:23 Height 4 ft 11 in Weight 187 lb 6.287 oz BMI 37.8 BP 156/98 H Blood Pressure Location Rt brachial Position Sitting Pulse 61 Intake Visit Reasons: Follow up medication Intake Note: Aline presents in the office as a follow up to go over her medications. CC: Still has some heartburn but she said she is doing good! She states she likes the mirtazapine - been watching what she eats. Tip Printer Required: No Allergies latex Allergy (Unknown, Verified 01/15/25 15:23) unknown levofloxacin [From Levaquin] Allergy (Unknown, Verified 01/15/25 15:23) Unknown Sulfa (Sulfonamide Antibiotics) Allergy (Unknown, Verified 01/15/25 15:23) Unknown HPI HPI Follow up medication: Details: Assessment & Plan (1) Delayed gastric emptying: Comment: 2022 GES delay Code(s): K30 - Functional dyspepsia (2) Chronic idiopathic constipation: Code(s): K59.04 - Chronic idiopathic constipation (3) Chronic GERD: Code(s): K21.9 - Gastro-esophageal reflux disease without esophagitis Plan REGLAN 5 MG 3 TIMES A DAY WITH SENT 11/26 The reglan is working well! She has had absolutely no side effects, and this has resolved her sulfa burping and her nausea. This is allowing her to eat better as well. She is very satisfied now with her GI regimen and the control of her heartburn. She also continues on her Trulance with good control of her constipation along with her pantoprazole and famotidine. She is taking 5 mg of Reglan 3 times a day and only had 1 incident of overnight acid brash what she thinks this because she ate too late. We discussed a possible for this depending on how she progresses especially with other medications. 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 She tells me that her doctor will be putting her on Wegovy soon and I did let her know that this could slow down her GI system even more and we may need to readjust the medications. Return office visit in 3 months ? TODAY'S VISIT She also continues on her Trulance with good control of her constipation along with her pantoprazole and famotidine. She is taking 5 mg of Reglan 3 times a day. She is also on mirtazepine, which she thought I rx'ed but she was confusing it with metoclopramdie. She had to come off of the [employer] in favor of [employer] r/t insurance, buyt she has lost 93 LBS!! ROV 6 mos. [facility] Medical History Nausea Early satiety Skin tag Encounter for general adult medical examination with abnormal findings Screening mammogram for breast cancer Family history of polyps in the colon Colon cancer screening Muscle spasm Viral syndrome Fever Right lumbosacral radiculopathy Sleep apnea Asthma History of anxiety Anemia Depression CVA (cerebral vascular accident) Myocardial infarction CAD (coronary artery disease) Patulous eustachian tube, right ear Anxiety, generalized Narcotic dependence Chronic GERD Paresthesia of right leg Paresthesia of arm Encounter for general adult medical examination with abnormal findings Surgical History (Updated 01/15/25 @ 15:59 by CHUCKIE Mosley) History of bilateral breast reduction surgery H/O esophagogastroduodenoscopy Hx of colonoscopy H/O bilateral breast reduction surgery Family History Father Lung cancer Social History Household Members: Children Housing: House Alcohol intake: current Alcohol intake frequency: holidays/special occasions only Patient Tobacco Use Status: Former Tobacco user e-Cigarette/Vaping Use: Never Used Current occupational status: disabled Cognitive needs: No Hearing needs: No Vision needs: No Review of Systems Const Denies fatigue, Denies fever(s), Denies night sweats, Denies poor appetite and Reports weight loss (Intentional dieting) ENT Reports Normal hearing present, Denies dental pain, Denies dysphagia, Denies hearing loss, Denies mouth pain, Denies odynophagia, Denies throat swelling, Denies tongue swelling and Reports other (Dentition adequate) Card Reports radiating jaw, neck or arm pain (Squeezing sensation) Resp Reports no additional complaints GI Details: Denies abdominal pain, Denies melena, Denies bloating, Denies hematochezia, Reports constipation, Denies GI cramping, Denies dysphagia, Denies excessive flatus, Reports early satiety, Reports heartburn, Denies diarrhea, Denies nausea, Denies odynophagia, Denies vomiting and Denies hematemesis Skin/Breast Denies pruritus, Denies lesions, Denies rash and Denies jaundice Neuro Reports Normal hearing present and Denies Abnormal speech present Endo Denies fatigue Aller/Immun Denies throat swelling and Denies tongue swelling Physical Exam Vital Signs: Last Vital Signs Pulse 61 01/15/25 15:23 BP 156/98 H 01/15/25 15:23 BMI result Body Mass Index 37.8 Const General: cooperative, no acute distress, well developed and well groomed Nutritional Appearance: well nourished and obese Orientation/consciousness: oriented to person, oriented to place and oriented to time Limitations: No language barrier HEENT Head: Yes normocephalic and Yes atraumatic Eyes General: appearance normal, both eyes and all related structures Pupils: Equal, round and reactive pupils present Neck Neck: Yes normal visual inspection and Yes no lymphadenopathy Thyroid: Thyroid normal Resp Effort & Inspection: normal respiratory effort and able to speak in complete sentences Auscultation: clear to auscultation bilaterally Cardio Rate: regular rate Rhythm: regular rhythm Heart sounds: Normal, physiologic split S2 sound present Peripheral pulses: radial pulses present and posterior tibial pulses present GI Inspection: No distended, No Abdominal panniculus present and Yes obesity Palpation (GI): Soft to palpation, nontender, no guarding, not rigid and No hepatosplenomegaly present Percussion: Yes normal to percussion Auscultation: normal bowel sounds Rectal Exam - Female: deferred Skin General skin exam: no rashes or lesions noted, turgor normal, skin not dry, no jaundice, No spider nevi and no striae Rashes: no rashes Nails: normal Neuro General: oriented to person, oriented to place and oriented to time Cranial nerves: Yes Equal, round and reactive pupils present and Yes Normal hearing present Speech: No Abnormal speech present Extrem General: Yes normal to inspection, No clubbing, No cyanosis and No edema Psych Appearance: grossly normal and well kempt Mental Status: mental status grossly normal Speech and movement: Normal speech and movement present Affect: normal affect Attitude: cooperative Thought process: Normal thought process present and not confabulating Thought content: Normal thought content present Insight: Fair insight present (Psych) Judgement: Fair judgement present (Psych) Assessment & Plan Assessment & Plan (1) Delayed gastric emptying: Comment: 2022 GES delay Code(s): K30 - Functional dyspepsia Category: Medical (2) Chronic idiopathic constipation: Code(s): K59.04 - Chronic idiopathic constipation Category: Medical (3) Chronic GERD: Code(s): K21.9 - Gastro-esophageal reflux disease without esophagitis Category: Medical Plan She also continues on her Trulance with good control of her constipation along with her pantoprazole and famotidine. She is taking 5 mg of Reglan 3 times a day. She is also on mirtazepine, which she thought I rx'ed but she was confusing it with metoclopramdie. She had to come off of the [employer] in favor of [employer] r/t insurance, buyt she has lost 93 LBS!! ROV 6 mos. Medications: Refilled metoclopramide HCl 5 mg PO TID 90 tabs 6RF K31.84 - Gastroparesis famotidine 40 mg PO BEDTIME 90 tabs 2RF pantoprazole 40 mg PO DAILY 90 tabs 2RF K21.9 - Gastro-esophageal reflux disease without esophagitis plecanatide (Trulance) 3 mg PO DAILY 30 tabs 6RF K59.04 - Chronic idiopathic constipation Coding Level of Care Code Est Pt Level 3 (95281) Diagnoses Delayed gastric emptying K30 Chronic idiopathic constipation K59.04 Chronic GERD K21.9
[2025-01-15 15:23] VITALS: BP 156/98; PULSE 61; BMI 37.8
== END 2025-01-15 16:05 | disposition home or self-care (01) ==
PROVIDERS: PCP Internal Medicine; Visit Provider Nurse Practitioner
DX: K30 Functional dyspepsia (principal); K59.04 Chronic idiopathic constipation; K21.9 Gastro-esophageal reflux disease without esophagitis
CPT/HCPCS: 99213

== ENCOUNTER → 2025-01-15 15:13 | Outpatient (BNVA) | payer OTHER, SELFPAY | PROVIDERS: PCP Internal Medicine; Visit Provider Nurse Practitioner | DX: K30 Functional dyspepsia (principal); K59.04 Chronic idiopathic constipation; K21.9 Gastro-esophageal reflux disease without esophagitis | CPT/HCPCS: 99212 ==

== ENCOUNTER 2025-08-19 13:13 | Outpatient (REF) | payer OTHER, SELFPAY | END 2025-08-19 13:14 | disposition home or self-care (01) | LOC: HO.LAB 13:13 | PROVIDERS: PCP Internal Medicine; Visit Provider Nurse Practitioner | DX: K21.9 Gastro-esophageal reflux disease without esophagitis (principal); K31.84 Gastroparesis; K59.04 Chronic idiopathic constipation; L65.9 Nonscarring hair loss, unspecified; K30 Functional dyspepsia | CPT/HCPCS: 36415; 84443; 99212 ==

== ENCOUNTER 2025-08-19 13:13 | Outpatient (AMB) | payer OTHER, SELFPAY ==
--- NOTE | 2025-08-19 13:15 | A.OFFVIS_ITS ---
Vital Signs 08/19/25 13:16 Height 4 ft 11 in Weight 176 lb 5.917 oz BMI 35.6 BP 142/82 H Blood Pressure Location Lt brachial Position Sitting Pulse 69 Intake Visit Reasons: Follow up GERD Intake Note: Aline presents in the office as a follow up for GERD. CC: States that she has started Primal Palmer three days ago. She states that so far so good - no concerns other than she has not been sleeping. 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: No Allergies latex Allergy (Unknown, Verified 08/19/25 13:18) unknown levofloxacin (From Levaquin) Allergy (Unknown, Verified 08/19/25 13:18) Unknown Sulfa (Sulfonamide Antibiotics) Allergy (Unknown, Verified 08/19/25 13:18) Unknown HPI HPI Follow up GERD: Details: Assessment & Plan (1) Delayed gastric emptying: Comment: 2022 GES delay Code(s): K30 - Functional dyspepsia Category: Medical (2) Chronic idiopathic constipation: Code(s): K59.04 - Chronic idiopathic constipation Category: Medical (3) Chronic GERD: Code(s): K21.9 - Gastro-esophageal reflux disease without esophagitis Category: Medical Plan She also continues on her Trulance with good control of her constipation along with her pantoprazole and famotidine. She is taking 5 mg of Reglan 3 times a day. She is also on mirtazepine, which she thought I rx'ed but she was confusing it with metoclopramdie. She had to come off of the [employer] in favor of [employer] r/t insurance, buyt she has lost 93 LBS!! ROV 6 mos. Medications: Refilled metoclopramide HCl 5 mg PO TID 90 tabs 6RF K31.84 - Gastroparesis famotidine 40 mg PO BEDTIME 90 tabs 2RF pantoprazole 40 mg PO DAILY 90 tabs 2RF K21.9 - Gastro-esophageal reflux disease without esophagitis plecanatide (Trulance) 3 mg PO DAILY 30 tabs 6RF K59.04 - Chronic idiopathic constipation TODAY'S VISIT [facility] Medical History Nausea Early satiety Skin tag Encounter for general adult medical examination with abnormal findings Screening mammogram for breast cancer Family history of polyps in the colon Colon cancer screening Muscle spasm Viral syndrome Fever Right lumbosacral radiculopathy Sleep apnea Asthma History of anxiety Anemia Depression CVA (cerebral vascular accident) Myocardial infarction CAD (coronary artery disease) Patulous eustachian tube, right ear Anxiety, generalized Narcotic dependence Chronic GERD Paresthesia of right leg Paresthesia of arm Encounter for general adult medical examination with abnormal findings Surgical History History of bilateral breast reduction surgery H/O esophagogastroduodenoscopy Hx of colonoscopy H/O bilateral breast reduction surgery Family History Father Lung cancer Social History Household Members: Children Housing: House Alcohol intake: current Alcohol intake frequency: holidays/special occasions only Patient Tobacco Use Status: Former Tobacco user e-Cigarette/Vaping Use: Never Used Current occupational status: disabled Cognitive needs: No Hearing needs: No Vision needs: No Review of Systems Const Denies fatigue, Denies fever(s), Denies night sweats, Denies poor appetite and Reports weight loss ENT Reports Normal hearing present, Denies dental pain, Reports dysphagia, Denies hearing loss, Denies mouth pain, Denies odynophagia, Denies throat swelling, Den ies tongue swelling and Reports other (Dentition adequate) Card Reports no additional complaints Resp Reports no additional complaints GI Details: Denies abdominal pain, Denies melena, Denies bloating, Denies hematochezia, Reports constipation, Denies GI cramping, Reports dysphagia, Denies excessive flatus, Denies early satiety, Reports heartburn, Denies diarrhea, Denies nausea, Denies odynophagia, Denies vomiting and Denies hematemesis Skin/Breast Reports alopecia, Denies pruritus, Denies lesions, Denies rash and Denies jaundice Neuro Reports Normal hearing present and Denies Abnormal speech present Endo Denies fatigue Aller/Immun Denies throat swelling and Denies tongue swelling Physical Exam Vital Signs: Last Vital Signs Pulse 69 11/13/25 13:16 BP 142/82 H 08/19/25 13:16 BMI result Body Mass Index 35.6 Const General: cooperative, no acute distress, well developed and well groomed Nutritional Appearance: well nourished and obese Orientation/consciousness: oriented to person, oriented to place and oriented to time Limitations: No language barrier HEENT Head: Yes normocephalic and Yes atraumatic Eyes General: appearance normal, both eyes and all related structures Pupils: Equal, round and reactive pupils present Neck Neck: Yes normal visual inspection and Yes no lymphadenopathy Thyroid: Thyroid normal Resp Effort & Inspection: normal respiratory effort and able to speak in complete sentences Auscultation: clear to auscultation bilaterally Cardio Rate: regular rate Rhythm: regular rhythm Heart sounds: Normal, physiologic split S2 sound present Peripheral pulses: radial pulses present and posterior tibial pulses present GI Inspection: No distended, Yes Abdominal panniculus present and Yes obesity Palpation (GI): Soft to palpation, nontender, no guarding, not rigid and No hepatosplenomegaly present Percussion: Yes normal to percussion Auscultation: normal bowel sounds Rectal Exam - Female: deferred Skin General skin exam: no rashes or lesions noted, turgor normal, skin not dry, no jaundice, No spider nevi and no striae Rashes: no rashes Nails: normal Neuro General: oriented to person, oriented to place and oriented to time Cranial nerves: Yes Equal, round and reactive pupils present and Yes Normal hearing present Speech: No Abnormal speech present Extrem General: Yes normal to inspection, No clubbing, No cyanosis and No edema Psych Appearance: grossly normal and well kempt Mental Status: mental status grossly normal Speech and movement: Normal speech and movement present Affect: normal affect Attitude: cooperative Thought process: Normal thought process present and not confabulating Thought content: Normal thought content present Insight: Good insight present (Psych) Judgement: Good judgement present (Psych) Assessment & Plan Assessment & Plan (1) Chronic GERD: Code(s): K21.9 - Gastro-esophageal reflux disease without esophagitis Category: Medical (2) Chronic idiopathic constipation: Code(s): K59.04 - Chronic idiopathic constipation Category: Medical (3) Delayed gastric emptying: Comment: 2022 GES delay Code(s): K30 - Functional dyspepsia Category: Medical (4) Hair loss: Code(s): L65.9 - Nonscarring hair loss, unspecified Category: Medical Plan He continues on her pantoprazole, famotidine, Reglan and Trulance. She remains satisfied with her GI regimen. She has a concern about her prazosin which was involved in a recall she asks me if the medication causes cancer. I advise her that it is not the medication itself but a by product of manufacturing in a particular group of medications produced by [employer]. She should contact her pharmacist to find out if any of her medications have been affected by the recall. She finds this reassuring. Other than that she continues on her Zepbound and is losing weight. She is quite happy with this in her only complaint is that she has losing hair in clumps this could be because of the weight loss but I suggest a thyroid just to make sure this isn't complicating her problem. Return office visit in 6 months Orders: Orders TSH reflex Free T4 Today L65.9 - Nonscarring hair loss, unspecified Medications: Refilled famotidine 40 mg PO BEDTIME 90 tabs 2RF pantoprazole 40 mg PO DAILY 90 tabs 2RF K21.9 - Gastro-esophageal reflux disease without esophagitis metoclopramide HCl 5 mg PO TID 90 tabs 6RF K31.84 - Gastroparesis plecanatide (Trulance) 3 mg PO DAILY 30 tabs 6RF K59.04 - Chronic idiopathic constipation Coding Level of Care Code Est Pt Level 3 (35773) Diagnoses Chronic GERD K21.9 Chronic idiopathic constipation K59.04 Delayed gastric emptying K30 Hair loss L65.9
[2025-08-19 13:16] VITALS: BP 142/82; PULSE 69; BMI 35.6
--- OUTSIDE RECORDS SUMMARY | 2025-08-19 16:33 | XMS_ITS | Clinical Summary ---
Author Organization [facility] Address [address] [place] [address] Phone Care Team Providers Care Pickup Driver Name Role Phone Anjel Castillo MD Primary Care Provider [phone] Encounters Date Type Department Care Team Description 08/19/2025 Lab Requisition [facility] [address] [place] [address] Tk Saravia MD 08/17/2025 Orders Only [facility] Surgery [address] [address] [place] [address] ProviderSergio MD 08/12/2025 Telephone [facility] [address] [place] [address] Dora London 08/10/2025 Telephone [facility] [address] [address] [place] [address] Dora London from Last 3 Months Social History Tobacco Use Types Packs/Day Years Used Date Smoking Tobacco: Never Assessed Education Answer Date Recorded Are you interested in more education? Not on arturo e 08/12/2025 Are you concerned about learning? Not on file 08/12/2025 No 08/12/2025 No 08/12/2025 Digital Access Answer Date Recorded No 08/12/2025 No 08/12/2025 Reliable internet access at home? Not on file 08/12/2025 Device with a working camera? Not on file Comments Unknown Sex and Gender Information Value Date Recorded Sex Assigned at Female 08/11/2025 4:43 PM EST Legal Sex Female 9:34 PM EDT Gender Identity Female 08/11/2025 4:43 PM EST Sexual Orientation Straight 08/11/2025 4: 43 PM EST Plan of Treatment Upcoming Encounters Date Type Department Care Team (Late st Contact Info) Description 09/09/2025 1:45 PM EST Office Visit [facility] Breast [facility] Surgery [address] [place] [address] Tk Saravia MD [address] [place] [address] [email or web address] Maintenance Due Date Last Done Comments Adult Td,Tdap Booster 1971 LIPID PANEL 1971 DEPRESSION SCREENING 1983 SMOKING Hx and SMOKELESS TOBACCO SCREENING 01/12/1984 HEPATITIS C SCREENING 1989 HIV ONE-TIME SCREENING (18-6 5 YEARS) 1989 PAP SMEAR 01/12/1992 COLOGUARD 01/12/2016 COLONOSCOPY 01/12/2016 COLORECTAL CANCER SCREENING 01/12/2016 FIT TEST 01/12/2016 FOBT 01/12/2016 SIGMOIDOSCOPY 01/12/2016 VIRTUAL COLONOSCOPY 01/12/2016 MAMMOGRAM 08/07/2020 08/07/2018 PNEUMOCOCCAL VACCINES (50+ years) (1 of 1 - PCV) 2021 ZOSTER VACCINES (1 of 2) 2021 INFLUENZA VACCINE (#1) 2025 COVID-19 VACCINE (3 - 2024-2 6 season) 2025 03/11/2021, 02/18/2021 RSV VACCINE (1 - 1-dose 75+ series) 2046 HEPATITIS A VACCINES Aged Out No long er eligible based on patient's age to complete this topic HIB VACCINES Aged Out No longer eligi ble based on patient's age to complete this topic IPV VACCINES Aged Out No longer eligi ble based on patient's age to complete this topic MENINGOCOCCAL VACCINES (ACWY) Aged Out No longer eligible based on patient's age to complete this topic MENINGOCOCCAL VACCINES (B) Aged Out N o longer eligible based on patient's age to complete this topic Medical Devices Not on file Procedures Procedure Name Priority Date/Time Associated Diagnosis Comments OUTSIDE PATHOLOGY Routine 06/15/2025 2:3 8 PM EDT OUTSIDE PATHOLOGY REVIEW/CONSULT Routine 06/15/2025 12:00 AM EDT from Last 3 Months Results * Outside Pathology (06/15/2025 2:38 PM EDT) Historical Provider MD PATHOLOGY ORDERABLES Britney l Result * Outside Pathology Review/Consult (06/15/2025 12:00 AM EDT) Consult Auto Resulting Yes 08/19/2025 7:25 AM EST [facility] PATHOLOGY Consult 06/15/2025 08/19/2025 7:0 6 AM EST Tk Saravia MD LAB PATHOLOGY ORDERABLES Final Result [facility] PATHOLOGY from Last 3 Months Insurance ONE CARE MEDICARE REPLACEMENT [facility] MEDICARE PART [facility] & [facility] RE[facility]AC[facility] MEDICARE PART A & [facility] [place] [address] ONE CARE MEDICARE REPLACEMENT MEDICARE PART A & B [facility] [place] [address] [place] [address] CARE MEDICARE REPLACEMENT MEDICARE PART A & B [facility] ONE CARE MEDICARE REPLACEMENT MEDICARE PART A & B [facility] ONE [facility]ARE MEDICARE REPLACEMENT MEDICARE PART A & [facility] [place] [address] ONE CARE MEDICARE REPLACEMENT MEDICARE PART A & B [facility] Care Teams Pickup Driver Relationship Specialty Start Date End Date Anjel Castillo MD [address] [place] [id number] PCP - General Internal Medicine 08/11/25 Additional Source Comments The information contained in this document represents components of the legal health record. It is not the complete legal health record.[facility]
--- OUTSIDE RECORDS SUMMARY | 2025-08-19 16:33 | XMS_ITS | Encounter Summary ---
Author Organization [facility] Address [address] [place] [address] Phone Care Team Providers Care First Helper Name Role Phone Anjel Castillo MD Primary Care Provider [phone]- [phone] Encounter Details Date Type Department Care Team (Late st Contact Info) Description 08/19/2025 Lab Requisition [facility] [address] Tk Saravia MD [address] [place] [phone] [email or web address] Social History Tobacco Use Types Packs/Day Years [...] Orientation Straight 08/11/2025 4: 43 PM EST documented as of this encounter Plan of Treatment Upcoming Encounters Date Type Department Care Team (Late st Contact Info) Description 09/09/2025 1:45 PM EST Office Visit [facility] Breast Center Surgery [address] [place] [address] Tk Saravia MD [address] [place] [id number] [email or web address] Pending Results Name Type Priority Associated Diagnoses Date /Time Tissue Exam Pathology and Cytology Routine 0 06/15/2025 12:00 AM EDT documented as of this encounter Procedures Procedure Name Priority Date/Time Associated Diagnosis Comments OUTSIDE PATHOLOGY REVIEW/CONSULT Routine 06/15/2025 12:00 AM EDT documented in this encounter Results * Outside Pathology Review/Consult (06/15/2025 12:00 AM EDT) Consult Auto Resulting Yes 08/19/2025 7:25 AM EST [facility] PATHOLOGY Consult 06/15/2025 08/19/2025 7:0 6 AM EST us Tk Saravia MD LAB PATHOLOGY ORDERABLES Final Result [facility] PATHOLOGY documented in this encounter Visit Diagnoses Not on filedocumented in this encounter Care Teams First Helper Relationship Specialty Start Date End Date Anjel Castillo MD [address] [place] [phone] PCP - General Internal Medicine 08/11/25 documented as of this encounter Additional Source Comments The information contained in this document represents components of the legal health record. It is not the complete legal health record.[facility]
--- OUTSIDE RECORDS SUMMARY | 2025-08-19 16:33 | XMS_ITS | Clinical Summary ---
Author Organization [facility] Address [address] [place] [address] Care Team Providers Care Fruit Receiver Name Role Phone Anjel Castillo MD Primary Care Provider [phone] Medications atorvastatin (LIPITOR) 80 mg tabletIndicatio ns:Non-ST elevation (NSTEMI) myocardial infarction (CMS/HCC V24, CMS/HCC V28) TAKE 1 TABLET BY MOUTH EVERY DAY 90 tablet 1 5 Active metoprolol succinate (TOPROL-XL) 50 mg 24 hr tablet TAKE 1 TABLET BY MOUTH 1 TIME EACH DAY. DO NOT CRUSH OR CHEW. 90 tablet 5 Active metoprolol succinate (TOPROL-XL) 50 mg 24 hr tablet Take 1 tablet (50 mg total) by mouth 1 (one) time each day. Do not crush or chew. 90 each 2 5 08/09/20 25 Discontinued atorvastatin (LIPITOR) 80 mg tabletIndicatio ns:Non-ST elevation (NSTEMI) myocardial infarction (CMS/HCC V24, CMS/HCC V28) TAKE 1 TABLET BY MOUTH EVERY DAY 90 tablet 1 5 07/21/20 25 Discontinued Medical History Medical History Date Comments Anxiety and depression DX:Anxiet y and depression Fibromyalgia DX:Fibromyalgia Migraine DX:Migraine CVA (cerebral vascular accid ent) (CMS/HCC V24, CMS/HCC V28) DX:CVA (cerebral vascular ac cident) ([facility]) MAYNOR on CPAP DX:MAYNOR on CPAP Chronic [...] Health Maintenance Due Date Last Done Comments Colorectal Cancer Screening: Colonoscopy 1970 DTaP,Tdap,and Td Vaccines (1 - Tdap) 1990 Hepatitis B Vaccines (1 of 3 - 19+ 3-dose series) 1990 Pneumococcal Vaccine: 50+ Years (1 of 2 - PCV) 1990 Cervical Cancer Screening: P ap Smear 01/12/1992 Breast Cancer Screening 08/07/2020 08/07/2018 RSV Immunization Adult Patients (1 - Risk 50-74 years 1-dose series) 2021 Zoster Vaccines (1 of 2) 2021 Cholesterol Screening (Lipid Panel) 09/15/2022 HIV Screening 09/15/2022 Hepatitis C Screening 09/15/2022 Social Influencers of Health Screening 09/15/2022 Hypertension/CHF/CAD Annual BMP Blood Test 09/20/2022 Depression Screening 10/07/2024 COVID-19 Vaccine (3 - 2024-2 6 season) 2025 03/11/2021, 02/18/2021 Influenza Vaccine (#1) 2025 HIB Vaccines Aged Out No longer [...] to complete this topic RSV Immunization Patients Under 20 months Aged Out No longer eligible b ased on patient's age to complete this topic Varicella Vaccines Aged Out No longer eligible based on patient's age to complete this topic Procedures Procedure Name Priority Date/Time Associated Diagnosis Comments [facility] SCREENING DIGITAL Routine 08/07/2018 1:47 PM EDT Encounter for screening mammogram for malignant neoplasm of breast from Last 3 Months or Most Recently Relevant to Health Maintenance Results * [facility] SCREENING DIGITAL (08/07/2018 1:47 PM EDT) Anatomical Region Laterality Modality Mammography 08/07/2018 10:0 8 AM EDT Narrative 08/07/2018 1:47 PM EDT [facility] Diagnostic Imaging Department [address] [place] [address] Patient: ALINE QUINONES [place] /Age/Sex: 1970 - 48 - F Unit#: [id number] Location/Status: [facility]/REG CLI Mnemonic/Ordering Site: [facility] Ordering Physician: NIKKI TAPIA MD Angelo Screening Digital - 08/07/18 - 1040 INDICATION: [...] target due date for the next mammogram: CPT II 7025F [id number] Dictating Physician: NELA SANCHEZ MD Electronically Signed by: NELA SANCHEZ MD Dic Date/Time: 08/07/18 1344 Sign date/Time: 08/07/18 1347 Procedure Note Nela Sanchez MD - 09/25/2022 [facility] Diagnostic Imaging Department [address] [place] [address] Patient: ALINE QUINONES [place] GibsonB./Age/Sex: 1970 - 48 - F Unit#: [id number] Location/Status: [facility] CLI Mnemonic/Ordering Site: [facility] Ordering Physician: NIKKI TAPIA MD Angelo Screening Digital - 08/07/18 - 1040 INDICATION: [...] for the next mammogram: CPT II 7025F [id number] Dictating Physician: NELA SANCHEZ MD Electronically Signed by: NELA SANCHEZ MD Dic Date/Time: 08/07/18 1344 Sign date/Time: 08/07/18 1347 Nikki Tapia MD IMG BI PROCEDURES Final Result from Last 3 Months or Most Recently Relevant to Health Maintenance Care Teams Fruit Receiver Relationship Specialty Start Date End Date Anjel Castillo MD [address] [place] [id number] PCP - General 07/06/24
--- OUTSIDE RECORDS SUMMARY | 2025-08-19 16:33 | XMS_ITS | Encounter Summary ---
Author Organization [facility] Address [address] [place] [phone] Phone Care Team Providers Care Hoisting Engine Operator Name Role Phone Anjel Castillo MD Primary Care Provider [phone] Encounter Details Date Type Department Care Team (Late st Contact Info) Description 08/17/[address] [facility] Breast Center Surgery [address] [place] [address] Provider, MD Sergio [address] [place] [id number] Social History Tobacco Use Types Packs/Day Years [...] Description 09/09/2025 1:45 PM EST Office Visit [facility] Breast Center Surgery [address] [place] [address] Tk Saravia MD [address] [place] [id number] [email or web address] documented as of this encounter Procedures Procedure Name Priority Date/Time Associated Diagnosis Comments OUTSIDE PATHOLOGY Routine 06/15/2025 2:38 PM EDT documented in this encounter Results * Outside Pathology (06/15/2025 2:38 PM EDT) us Historical Provider PATHOLOGY ORDERABLES Britney l Result documented in this encounter Visit Diagnoses Not on filedocumented in this encounter Care Teams Hoisting Engine Operator Relationship Specialty Start Date End Date Anjel Castillo MD [address] [place] [id number] PCP - General Internal Medicine 08/11/25 documented as of this encounter Additional Source Comments The information contained in this document represents components of the legal health record. It is not the complete legal health record.[facility]
== END 2025-08-19 13:55 | disposition home or self-care (01) ==
LOC: HO.HGI 13:13
PROVIDERS: PCP Internal Medicine; Visit Provider Nurse Practitioner
DX: K21.9 Gastro-esophageal reflux disease without esophagitis (principal); K59.04 Chronic idiopathic constipation; K30 Functional dyspepsia; L65.9 Nonscarring hair loss, unspecified
CPT/HCPCS: 99213